=== PATIENT | female | born 1950 | race African-American/Black ===

== ENCOUNTER 2017-06-16 20:30 | Outpatient (CLI) | payer OTHER, MEDICARE | END 2017-06-16 20:31 | disposition home or self-care (01) | LOC: SLEEPLAB 20:30 | PROVIDERS: ATTEND Internal Medicine Critical Care Medicine | DX: G47.33 Obstructive sleep apnea (adult) (pediatric) (principal); R06.81 Apnea, not elsewhere classified; R53.83 Other fatigue; R40.0 Somnolence; E66.9 Obesity, unspecified; R06.83 Snoring; I10 Essential (primary) hypertension ==

== ENCOUNTER 2017-09-13 10:07 | Outpatient (CLI) | payer OTHER, MEDICARE ==
--- NOTE | 2017-09-13 10:44 | RAD ---
LEFT ANKLE RADIOGRAPHS THREE VIEWS: Date: 09-13-17 Provided Clinical History: Atopic dermatitis. FINDINGS: There is no evidence for fracture or other acute osseous abnormality. Conspicuous degenerative change s are seen at the talonavicular joint. Alignment appears anatomic. Joint spaces appear otherwise pres erved. Accessory ossification is noted adjacent to the tip of malleolus. IMPRESSION: Advanced talonavicular degenerative arthrosis. POS: [facility]
--- NOTE | 2017-09-13 10:45 | RAD ---
LEFT HAND RADIOGRAPHS TWO VIEWS: Date: 09-13-17 Provided Clinical History: Atopic dermatitis. FINDINGS: There is no evidence for fracture or other acute osseous abnormality. Alignment appears anatomic. Merna nt spaces appear preserved with the exception of the second MCP joint space narrowing. Degenerative c hanges are seen at the first CMC joint. There is no erosive change evident. Bone mineralization appea rs normal. IMPRESSION: Second MCP joint space narrowing which can be seen in the setting of CPPD deposition disease. POS: [facility]
--- NOTE | 2017-09-13 10:47 | RAD ---
LEFT HAND RADIOGRAPHS TWO VIEWS: Date: 09-13-17 Provided Clinical History: Atopic dermatitis. FINDINGS: There is no evidence for fracture or other acute osseous abnormality. There is second and third MTP j oint space narrowing without significant productive change. No erosive changes are evident. Alignment appears anatomic. Joint spaces appear otherwise preserved. IMPRESSION: Second and third MTP joint space loss without bony productive change or erosive change. 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 POS: [facility]
--- NOTE | 2017-09-13 11:24 | RAD ---
RIGHT ANKLE THREE VIEWS: HISTORY: Atopic dermatitis. Scleritis. COMPARISON: None. FINDINGS: No acute fracture or malalignment. There is severe degenerative disease of the talonavicular joint w ith large erosions. There is possible subtalar coalition. Moderate degenerative changes of the medial and lateral shoulders of the ankle mortis. 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 POS: [facility]
--- NOTE | 2017-09-13 11:29 | RAD ---
RIGHT FOOT THREE VIEWS: HISTORY: Atopic dermatitis. COMPARISON: None. FINDINGS: There is severe degenerative disease of the talonavicular joint with loss of volume of the lateral na vicula with large subchondral cyst formation. Possible subtalar coalition. Lisfranc interval appears to be maintained. No acute fracture or malalignment is appreciated. IMPRESSION: 1. Collapse of the lateral margin of the navicula with severe degenerative disease of the talonavicu lar joint, indicating osteonecrosis with secondary degenerative changes. 2. 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 POS: [facility]
--- NOTE | 2017-09-13 11:47 | RAD ---
LEFT FOOT THREE VIEWS: History: Pain. Comparison: None. FINDINGS: There is loss of volume of the lateral navicular with subchondral cyst formation of the talonavicular joint with complete cartilage loss. 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 No acute fracture is appreci ated. IMPRESSION: 1. 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 2. 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 POS: [facility]
[2017-09-13 12:01] LABS: #Basophils 0.1 thou/uL (0.0-0.2); #Eosinphils 0.4 thou/uL (0.0-0.7); #Lymphocytes 0.7 thou/uL (1.20-3.40); #Monocytes 0.7 thou/uL (0.11-0.59); #Neutrophils 5.5 thou/uL (1.40-6.50); %Basophils 0.7 % (0.0-1.0); %Eosinophils 5.5 % (0.0-10.0); %Lymphocytes 9.7 % (21.0-51.0); Hematocrit 46.5 % (36.0-47.0); Mean Platelet Volume 7.4 fL (7.4-10.4); Red Blood Cell (RBC) Count 4.83 mill/uL (4.20-5.40); White Blood Cell (WBC) Count 7.4 thou/uL (4.8-10.8)
[2017-09-13 12:20] LABS: ALT (SGPT) 13 U/L (8-55); AST (SGOT) 16 U/L (5-34); Alkaline Phosphatase 66 U/L (40-150); Anion Gap 16 mmol/L (10-20); BUN (Urea Nitrogen) 15 mg/dL (9.8-20.1); Bilirubin, Total 0.4 mg/dL (0.2-1.2); Calc. Creatinine Clearance 0 mL/min (70-130); Calcium 10.2 mg/dL (7.8-10.44); Carbon Dioxide 27 mmol/L (23-31); Chloride 98 mmol/L (98-107); Estimated GFR-MDRD 58; Globulin 3.3 g/dL (2.4-3.5); Protein, Total 7.4 g/dL (6.0-8.3)
[2017-09-15 15:15] LABS: ANCA Pattern <1:20 titer (Neg:<1:20); ANCA Total <1:20 titer (Neg:<1:20); Myeloperoxidase AutoAbs <9.0 U/mL (0.0-9.0); Proteinase-3 AutoAbs Less than 3.5 U/mL (0.0-3.5)
== END 2017-09-13 10:08 | disposition home or self-care (01) ==
LOC: RAD 10:07
PROVIDERS: ATTEND Allergy & Immunology Allergy
DX: L40.9 Psoriasis, unspecified (principal); L20.9 Atopic dermatitis, unspecified; H15.04 Scleritis with corneal involvement; H15.013 Anterior scleritis, bilateral; M87.875 Other osteonecrosis, left foot; M19.271 Secondary osteoarthritis, right ankle and foot; M19.042 Primary osteoarthritis, left hand
CPT/HCPCS: 36415; 80053; 85025; 85048; 85652; 86021; 86038; 86140; 86359; 86360; 86592

== ENCOUNTER 2017-10-09 15:37 | Outpatient (CLI) | payer OTHER, MEDICARE ==
--- NOTE | 2017-10-09 17:02 | RAD ---
PA AND LATERAL CHEST RADIOGRAPH: Date: 10-09-17 History: Dyspnea. Comparison: None available. FINDINGS: Cardiac silhouette and pulmonary vasculature are within normal limits. There is mild elevation of the right hemidiaphragm with minimal volume loss in the right lung base. Lungs are otherwise clear. Dege nerative changes are seen in the spine. Vascular calcification is seen in the thoracic aorta. IMPRESSION: No acute cardiopulmonary process. POS: [facility]
== END 2017-10-09 15:38 | disposition home or self-care (01) ==
LOC: RAD 15:37
PROVIDERS: ATTEND Internal Medicine Pulmonary Disease
DX: R06.00 Dyspnea, unspecified (principal)
CPT/HCPCS: 71046

== ENCOUNTER 2018-01-09 14:28 | Outpatient (CLI) | payer OTHER, MEDICARE ==
[2018-01-09] MEDS ORDERED: Gadobenate Dimeglumine 529 MG/1 ML (20ML VIAL) ONE (14:58)
[2018-01-09 16:01] LABS: Estimated GFR-MDRD - POC Greater than 90
--- NOTE | 2018-01-09 16:20 | RAD ---
LUMBAR SPINE TWO VIEWS: 01/09/18 HISTORY: Low back pain. FINDINGS: There are five lumbar type vertebrae. Pedicles are intact. Postoperative changes at the lower three l evels are suspected. Vertebral body heights are maintained. Spondylolisthesis at the 4-5 level has in creased to 1.1 cm, significantly greater than on the 2016 exam. There is multilevel disc space narrow ing and gas disc phenomenon. Prominent osteophytosis. Vertebral body heights are maintained. Leftward convexed curvature on the frontal view. IMPRESSION: Prominent degenerative changes and postoperative changes of the lumbar spine. Grade II spondylolisthesis at the L4-5 level has progressed significantly since the previous exam. POS: [facility]
--- NOTE | 2018-01-09 17:09 | MRI ---
MRI LUMBAR SPINE WITH AND WITHOUT CONTRAST: 01/09/18 HISTORY: Low back pain with radiculopathy. Post laminectomy syndrome. FINDINGS: The conus medullaris is slightly effaced by posterior disc bulge at the T12-L1 level. Vertebral body heights are maintained. There is desiccation of all of the intervertebral discs and prominent multile addy discogenic end plate changes within the bone marrow. T12-L1: Posterior disc bulge. Circumferential degenerative changes with moderate stenosis of the cent ral canal. Mild stenosis left neural foramen. L1-2: Disc space narrowing. Posterior disc bulge with circumferential degenerative changes result in moderate stenosis of the central canal. There is mild right and moderate left foraminal stenosis. L2-3: Posterior operative decompression. Posterior disc bulge and circumferential degenerative change s with mild stenosis of the central canal. Disc space narrowing and minimal degenerative retrolisthes is. Degenerative changes result in moderate right and severe left foraminal stenoses. L3-4: Posterior operative decompression. Disc space narrowing with minimal degenerative retrolisthesi s. Posterior disc bulge and circumferential degenerative change result in moderate stenosis of the ce ntral canal and severe stenosis of each neural foramen. L4-5: Posterior operative decompression. Disc space narrowing with grade II degenerative spondylolist hesis. Disc bulge and circumferential degenerative changes with severe stenosis of the central canal. There is moderate right and severe left foraminal stenosis. L5-S1: Mild disc bulge. Thecal sac is patent. Degenerative changes with moderate bilateral foraminal stenoses. IMPRESSION: Severe multilevel degenerative changes throughout the lumbar spine as detailed above, most greatly af fecting bilateral neural foramina. POS: [facility]
== END 2018-01-09 14:29 | disposition home or self-care (01) ==
LOC: TBSIIMAG 14:28
PROVIDERS: ATTEND Nurse Practitioner Family
DX: M96.1 Postlaminectomy syndrome, not elsewhere classified (principal); M47.896 Other spondylosis, lumbar region; M43.16 Spondylolisthesis, lumbar region; Z98.1 Arthrodesis status; M48.8X6 Other specified spondylopathies, lumbar region
CPT/HCPCS: 72100; 72158; 82565; A9579

== ENCOUNTER 2018-01-12 11:02 | Emergency (ER) | payer OTHER, MEDICARE ==
--- NOTE | 2018-01-12 11:55 | RAD ---
TWO VIEWS CHEST: HISTORY: Dyspnea. Difficulty breathing. COMPARISON: 10/09/17. FINDINGS: Slight elongation of the aorta. Normal cardiac silhouette. The pulmonary vessels and hilum are norm al. Costophrenic angles are clear. Interstitial opacities may represent edema or infiltrate. No co nsolidation or mass. No pneumothorax or osseous abnormalities. IMPRESSION: Interstitial prominence due to edema or infiltrate. Continued surveillance. POS: [facility]
[2018-01-12] MEDS ORDERED: cefTRIAXone\\ROCEPHIN 2 GM VIAL ONE (13:02)
[2018-01-12 13:21] LABS: ALT (SGPT) 7 U/L (8-55); AST (SGOT) 14 U/L (5-34); Albumin 3.9 g/dL (3.4-4.8); Alkaline Phosphatase 81 U/L (40-150); Anion Gap 16 mmol/L (10-20); BUN (Urea Nitrogen) 7 mg/dL (9.8-20.1); Bilirubin, Total 0.7 mg/dL (0.2-1.2); CK (CPK) 72 U/L (29-168); Calc. Creatinine Clearance 0 mL/min (70-130); Carbon Dioxide 22 mmol/L (23-31); Chloride 102 mmol/L (98-107); Estimated GFR-MDRD Greater than 90; Globulin 2.9 g/dL (2.4-3.5); Glucose 84 mg/dL (80-115); Potassium 3.6 mmol/L (3.5-5.1); Protein, Total 6.8 g/dL (6.0-8.3); Sodium 136 mmol/L (136-145)
[2018-01-12 13:26] LABS: CKMB 0.5 ng/mL (0-6.6)
[2018-01-12 13:29] LABS: Band 5 % (5-11); Eosinophils 3 % (0-10); Hemoglobin 12.7 g/dL (12.0-16.0); Lymphocytes 15 % (21-51); MDiff Complete? YES; Mean Corpuscular HGB CONC 32.3 g/dL (32.0-36.0); Mean Corpuscular Hemoglobin 31.3 pg (27.0-31.0); Mean Platelet Volume 7.5 fL (7.4-10.4); Metamyelocyte 1 % (0-0); Monocytes 15 % (0-10); Neutrophil 60 % (42-75); PLT Morphology Comment Appears Adequate; Platelet Count 235 thou/uL (130-400); RBC Distribution Width 12.1 % (11.5-14.5); RBC Morphology Normal; Reactive Lymphocytes 1 % (0-10); Red Blood Cell (RBC) Count 4.06 mill/uL (4.20-5.40); White Blood Cell (WBC) Count 5.4 thou/uL (4.8-10.8)
[2018-01-12 13:47] LABS: Troponin I Less than 0.010 ng/mL (< 0.028)
== END 2018-01-12 14:47 | disposition home or self-care (01) ==
LOC: ERS 11:02
DX: J18.9 Pneumonia, unspecified organism (principal); L40.9 Psoriasis, unspecified; I10 Essential (primary) hypertension; M19.90 Unspecified osteoarthritis, unspecified site; Z79.52 Long term (current) use of systemic steroids; Z79.899 Other long term (current) drug therapy
CPT/HCPCS: 36415; 71046; 80053; 82550; 82553; 83880; 84484; 85025; 87040; 93005; 96365; J0696

== ENCOUNTER 2018-01-17 11:47 | Outpatient (CLI) | payer OTHER, MEDICARE ==
--- NOTE | 2018-01-17 13:45 | RAD ---
PA AND LATERAL VIEWS CHEST: HISTORY: Pneumonia. FINDINGS: Comparison is made with the exam of 01/12/18. There is continued evaluation of the right hemidiaphragm. The heart size is borderline. No lobar co nsolidation, pneumothorax, sara pulmonary edema, or pleural effusions are seen. There are degenerat artemio changes in the spine. IMPRESSION: No acute process. POS: [facility]
== END 2018-01-17 11:48 | disposition home or self-care (01) ==
LOC: SCSRAD 11:47
PROVIDERS: ATTEND Family Medicine
DX: J18.9 Pneumonia, unspecified organism (principal); H10.503 Unspecified blepharoconjunctivitis, bilateral
CPT/HCPCS: 71046

== ENCOUNTER 2018-04-11 14:34 | Outpatient (CLI) | payer OTHER, MEDICARE | END 2018-04-11 14:35 | disposition home or self-care (01) | LOC: BICMAMMO 14:34 | PROVIDERS: ATTEND Allergy & Immunology | DX: Z13.820 Encounter for screening for osteoporosis (principal); M85.859 Other specified disorders of bone density and structure, unspecified thigh; Z79.899 Other long term (current) drug therapy | CPT/HCPCS: 77080 ==

== ENCOUNTER 2018-07-13 17:16 | Emergency (ER) | payer MEDICARE ==
[2018-07-13] MEDS ORDERED: predniSONE 20 MG TAB ONE (18:26)
[2018-07-13] MEDS ORDERED: Famotidine 20 MG TAB ONE (18:26)
[2018-07-13] MEDS ORDERED: diphenhydrAMINE 12.5 MG/5 ML UDCUP ONE (18:26)
== END 2018-07-13 18:35 | disposition home or self-care (01) ==
LOC: ERS 17:16
DX: L50.0 Allergic urticaria (principal); T36.4X5A Adverse effect of tetracyclines, initial encounter; I10 Essential (primary) hypertension
CPT/HCPCS: 99282; J7506

== ENCOUNTER 2018-08-27 09:55 | Outpatient (CLI) | payer MEDICARE ==
[2018-08-27] MEDS ORDERED: Magnevist 469MG/ML 20 ML VIAL ONE (10:19)
--- NOTE | 2018-08-27 17:17 | MRI ---
MRI LUMBAR SPINE WITH AND WITHOUT CONTRAST: Date: 08/27/18 HISTORY: Pain. M43.16 spondylolisthesis lumbar region. COMPARISON: MRI from 01/09/18. FINDINGS: The aortic contour, where visualized, is nonaneurysmal, although is not completely visualized on the axial images. No retroperitoneal adenopathy. Mild paraspinal muscular atrophy, symmetric. There is no marrow infiltrative process. Post laminectomy surgical changes at L3, L4, and L5. The conus medullaris terminates near the mid L1 vertebral body. No abnormal enhancing mass is appreciated. Levels are as follows: T12-L1: There is a circumferential disc osteophyte complex. Mild ligamentum flavum hypertrophy. The spinal canal measures approximately 8.0 mm. Mild bilateral neural foraminal narrowing. L1-2: There is a circumferential disc bulge. Increased posterior epidural fat. Spinal canal measures approximately 7.0 mm. There is moderate bilateral neural foraminal narrowing, worse on the left, wit h mild right and moderate left side neural foraminal narrowing. L2-3: There is a circumferential disc bulge. Prior laminectomy. Spinal canal not significantly narro wed. Moderate facet arthropathy. There is moderate left and mild right-sided neural foraminal narrowi ng with abutment of the left exiting and traversing nerve root. There is 3.0 mm degenerative retrolis thesis. L3-4: Severe degenerative disc space height loss. Circumferential disc osteophyte complex. There is moderate to severe left and moderate right side neural foraminal narrowing with abutment of the left exiting and traversing nerve roots and abutment of the right traversing nerve root. Hypertrophic face t changes. No significant spinal canal narrowing. L4-5: There is anterolisthesis of L4 over L5 approximately 9.0 mm. Hypertrophic facet changes. Moder ate bilateral neural foraminal narrowing. Spinal canal not significantly narrowed. Abutment of the ex iting left-sided nerve root. L5-S1: Moderate to severe degenerative disc space height loss. Circumferential disc osteophyte compl ex. Moderate to severe bilateral neural foraminal narrowing without significant abutment of the exiti ng or traversing nerve roots. IMPRESSION: Multilevel spondylosis as described above. POS: [facility]
== END 2018-08-27 09:56 | disposition home or self-care (01) ==
LOC: BICMRI 09:55
PROVIDERS: ATTEND Specialist
DX: M43.16 Spondylolisthesis, lumbar region (principal); M47.816 Spondylosis without myelopathy or radiculopathy, lumbar region; M47.817 Spondylosis without myelopathy or radiculopathy, lumbosacral region
CPT/HCPCS: 72158; 82565; A9579

== ENCOUNTER 2018-09-03 13:31 | Outpatient (CLI) | payer MEDICARE ==
--- NOTE | 2018-09-03 16:08 | RAD ---
LUMBAR SPINE FOUR VIEWS: 09/03/2018 HISTORY: Lumbar spondylolisthesis. COMPARISON: 01/09/2018 FINDINGS: Five lumbar type vertebral bodies are present. The patient appears status post multilevel bilateral laminectomy. This includes the L2 level through the L5 level. Neutral lateral imaging demonstrates anterolisthesis of L4 on L5,measuring 1.6 cm. There is retrolis thesis at L2-L3 measuring 6 mm and at L3-L4 measuring 5 mm. There is facet hypertrophy at L3-L4, L4- L5, and L5-S1, and there is multilevel disk space height with degenerative endplate change noted thro ughout the lumbar spine. With flexion, the anterolisthesis of L4 on L5 measures 1.6 cm. The retroli sthesis at L2-L3 measures 4 mm, and the retrolisthesis at L3-L4 measures 5 mm. With extension, anterolisthesis of L4 on L5 measures 1.6 cm. Retrolisthesis at L2-L3 measures 4 mm a nd at L3-L4 measures 5 mm. No acute osseous abnormality. IMPRESSION: Postoperative and degenerative change noted within the lumbar spine, as described above. POS: [facility]
== END 2018-09-03 13:32 | disposition home or self-care (01) ==
LOC: BICRAD 13:31
PROVIDERS: ATTEND Specialist
DX: M43.16 Spondylolisthesis, lumbar region (principal); M47.816 Spondylosis without myelopathy or radiculopathy, lumbar region; M47.817 Spondylosis without myelopathy or radiculopathy, lumbosacral region; Z98.890 Other specified postprocedural states
CPT/HCPCS: 72110

== ENCOUNTER 2018-11-15 00:30 | Outpatient (CLI) | payer MEDICARE ==
[2018-11-15 14:05] LABS: #Eosinphils 0.8 thou/uL (0.0-0.7); #Monocytes 0.8 thou/uL (0.11-0.59); #Neutrophils 3.9 thou/uL (1.40-6.50); %Basophils 0.2 % (0.0-1.0); %Eosinophils 12.7 % (0.0-10.0); %Lymphocytes 14.9 % (21.0-51.0); %Monocytes 12.5 % (0.0-10.0); %Neutrophils 59.8 % (42.0-75.0); Hemoglobin 13.1 g/dL (12.0-16.0); Mean Corpuscular HGB CONC 32.1 g/dL (32.0-36.0); Mean Corpuscular Hemoglobin 31.6 pg (27.0-31.0); Mean Corpuscular Volume 98.3 fL (78.0-98.0); Mean Platelet Volume 9.2 fL (7.4-10.4); Platelet Count 270 thou/uL (130-400); RBC Distribution Width 11.9 % (11.5-14.5); Red Blood Cell (RBC) Count 4.14 mill/uL (4.20-5.40); White Blood Cell (WBC) Count 6.5 thou/uL (4.8-10.8)
[2018-11-15 14:16] LABS: Prothrombin Time 13.5 SEC (12.0-14.7)
[2018-11-15 14:20] LABS: Anion Gap 16 mmol/L (10-20); BUN (Urea Nitrogen) 30 mg/dL (9.8-20.1); Calc. Creatinine Clearance 0 mL/min (70-130); Calcium 9.8 mg/dL (7.8-10.44); Carbon Dioxide 22 mmol/L (23-31); Chloride 105 mmol/L (98-107); Estimated GFR-MDRD 51; Glucose 101 mg/dL (80-115); Potassium 3.6 mmol/L (3.5-5.1); Sodium 139 mmol/L (136-145)
== END 2018-11-15 00:31 | disposition home or self-care (01) ==
LOC: LABBT 00:30
PROVIDERS: ATTEND Orthopaedic Surgery
DX: Z01.818 Encounter for other preprocedural examination (principal); M17.11 Unilateral primary osteoarthritis, right knee
CPT/HCPCS: 80048; 85025; 85610; 86850; 86900; 86901; 87081; 93005; 93010

== ENCOUNTER 2018-11-15 13:30 | Inpatient (IN) | payer MEDICARE ==
--- NOTE | 2018-11-13 12:50 | HP ---
HISTORY OF PRESENT ILLNESS: The patient is a 68-year-old female with a long history of progressive degenerative arthritis of both knees, right greater than left. She has had no injury. She has had progressive symptoms despite restriction of activities, anti-inflammatory medications, and cortisone injections. The pain is interfering with day-to-day activities including walking, getting dressed, and sleeping. She is to use a cane for ambulation. PAST HISTORY: The patient has a history of hypertension and psoriasis. CURRENT MEDICATIONS: Include multivitamins, Aquaphor ointment, Altabax ointment, Dupixent injections twice monthly, Tylenol No.3, Cardura, cyclosporine, pantoprazole, chlorthalidone, and carvedilol. ALLERGIES: SHE IS ALLERGIC TO BIAXIN, METHOTREXATE, AND SULFA. FAMILY HISTORY: Otherwise unremarkable. SOCIAL HISTORY: Otherwise unremarkable. REVIEW OF SYSTEMS: Otherwise unremarkable. PHYSICAL EXAMINATION: GENERAL: Reveals a healthy female. HEENT: Unremarkable. NECK: Supple. CHEST: Clear. HEART: Regular rate and rhythm. ABDOMEN: Soft and nontender. PELVIC: Deferred. RECTAL: Deferred. BREAST: Deferred. EXTREMITIES: Pertinent findings related to the right knee. There is a trace effusion. There is mild varus deformity. There is tenderness over the medial and lateral joint lines. Range of motion is 3 to 120 degrees. There is crepitus with range of motion. There is no instability. Distal pulses 1+. NEUROVASCULAR: Intact. There is a right antalgic gait. DIAGNOSTIC STUDIES: X-rays of both knees reveal [id number] collapse medially, right greater than left. ASSESSMENT: 1. Degenerative arthritis of both knees, right symptomatic more than left. 2. History of hypertension. 3. History of psoriasis. PLAN: Right total knee replacement. The nature of the surgery, length, recovery, potential complications, infection, loss of motion, incomplete relief, delayed wound healing, neurovascular injury, thromboembolic phenomenon, possible transfusion, and need for revision have been discussed in detail. Job ID: [id number]
[2018-11-15 13:04] VITALS: BMI 35.5
[2018-11-19] MEDS ORDERED: Vancomycin HCl 1.5 GM in Sodium Chloride 0.9% 250 ML 300 ML IVPB SCH ×3 (06:00→18:00)
[2018-11-19] MEDS ORDERED: Fentanyl 100 MCG/2 ML VIAL ONE ×4 (06:34→09:56)
[2018-11-19] MEDS ORDERED: Midazolam HCl 2 mg/2 ml Vial ONE (06:34)
[2018-11-19] MEDS ORDERED: Bupivacaine/Epinephrine 0.25% 30 ML VIAL ONE ×2 (06:41→06:42)
[2018-11-19] MEDS ORDERED: Lidocaine 1% w/Epinephrine 1:100K 20 ML VIAL ONE ×3 (06:41→06:46)
[2018-11-19] MEDS ORDERED: Tranexamic Acid 1,000 MG/10 ML VIAL ONE ×2 (06:52→09:28)
[2018-11-19] MEDS ORDERED: Sodium Chloride 0.9% 100 ML ONE (06:52)
[2018-11-19] MEDS ORDERED: Promethazine HCl 25 MG/ML VIAL IM PRN ×2 (07:57→08:42)
[2018-11-19] MEDS ORDERED: HYDROcodone/Acetaminophen 10/325 mg Tablet PO PRN ×4 (07:57→11:36)
[2018-11-19] MEDS ORDERED: Fentanyl 100 MCG/2 ML VIAL SLOW IVP PRN ×3 (07:57→11:36)
[2018-11-19] MEDS ORDERED: Zolpidem Tartrate 5 MG TAB PO PRN ×2 (07:57→11:36)
[2018-11-19] MEDS ORDERED: traMADol HCl 50 MG TAB PO PRN ×2 (07:57→11:36)
[2018-11-19] MEDS ORDERED: Promethazine HCl 25 MG/ML VIAL SLOW IVP PRN ×2 (08:42→11:36)
[2018-11-19] MEDS ORDERED: Ondansetron HCl/PF 4 MG/2 ML Vial IVP PRN (08:42)
[2018-11-19] MEDS ORDERED: Tranexamic Acid 1,000 MG in Sodium Chloride 0.9% 100 ML IVPB SCH ×2 (09:30→11:36)
[2018-11-19] MEDS ORDERED: Lidocaine 1% (PF) 30 ML VIAL ONE (10:35)
--- NOTE | 2018-11-19 11:10 | RAD ---
TWO VIEWS RIGHT KNEE: DATE: 11/19/2018. PROVIDED CLINICAL HISTORY: Postop. FINDINGS: Postoperative changes of right total knee arthroplasty are demonstrated. There is no evidence for an acute osseous abnormality. Postoperative soft tissue gas is seen. IMPRESSION: As above. POS: [facility]
[2018-11-19] MEDS ORDERED: Ondansetron PF 4 MG/2 ML Vial IVP PRN (11:36)
[2018-11-19] MEDS ORDERED: diphenhydrAMINE 25 MG CAP PO PRN (11:36)
[2018-11-19] MEDS ORDERED: Acetaminophen 325 MG TAB PO PRN (11:36)
[2018-11-19] MEDS ORDERED: Leflunomide 10 mg Tablet PO PRN (11:36)
--- NOTE | 2018-11-19 13:56 | OP ---
DATE OF PROCEDURE: 11/19/2018 ELIGIBILITY SERVICES REPRESENTATIVE: Soco Anne PA-C ANESTHESIA: General plus adductor canal and sciatic nerve blocks. PREOPERATIVE DIAGNOSIS: Degenerative arthritis, right knee. POSTOPERATIVE DIAGNOSIS: Degenerative arthritis, right knee. PROCEDURE PERFORMED: Right total knee replacement with computer-assisted navigation with cemented [place] triathlon components (#3 femoral component, #3 primary base plate with 9 mm CS plastic insert, and S27 all plastic patellar component). DESCRIPTION OF PROCEDURE: After satisfactory anesthesia was induced in supine position, sequential compression device was placed on the nonoperative leg throughout the procedure. The right leg was then prepped and draped in routine sterile fashion. The right leg was elevated and exsanguinated with an Esmarch bandage and the tourniquet was inflated to 300 mmHg. A gently curved medial parapatellar incision was made, carried down through the subcutaneous tissues and bleeding points controlled with Bovie cautery. Medial parapatellar arthrotomy was performed of the patella, this was carried laterally and portions of the fat pad were excised for exposure. There was marked tricompartmental degenerative arthritis of the knee with large areas of exposed bone. Meniscal remnants and osteophytes were removed. Using the [employer] pinless navigation system and appropriate guides, the distal femoral and proximal tibial articular surfaces were excised with an oscillating saw to accept the trial components. It was felt that #3 femoral component, #3 primary tibial base plate with 9-mm CS plastic insert gave appropriate size, fit, stability. The patellar articular surface was excised to accept all plastic S27 patellar component. There was good patellar tracking. The trial components were removed. The knee was copiously irrigated with pulsatile lavage. The bony surfaces thoroughly cleaned and dried. The permanent components were then cemented in a single stage using one pack of cement premixed with 1 g of tobramycin powder. Excess cement was removed. There was again good fit and stability of the components. The knee was then copiously irrigated with pulsatile lavage. The medial retinaculum and quadriceps mechanism were closed with interrupted #2 Vicryl running #2 Quill. Subcutaneous tissues were closed with running 0 Quill suture and the skin closed with running subcuticular 3-0 Monoderm and SurgiSeal skin adhesive. A sterile bulky compressive dressing was applied. The tourniquet deflated for 72 minutes. The foot promptly pinked up. Sequential compression device was applied to the operated leg and she was awakened, taken to the recovery room in stable condition. There were no apparent intraoperative complications. The estimated blood loss was less than 100 mL. Job ID: [id number]
[2018-11-19] MEDS: Sodium Chloride 0.9% 1,000 ML IV SCH ×2 (13:57→23:53)
[2018-11-19] MEDS ORDERED: Ropivacaine 0.5% HCl/PF (150 MG/30 ML VIAL) ONE (14:42)
[2018-11-19] MEDS ORDERED: Ropivacaine 0.2% HCl/PF (40 MG/20 ML VIAL) ONE (14:42)
[2018-11-19] MEDS ORDERED: Bupivacaine HCl 0.5%/Epinephrine 1:200,000/PF 30 ml Vial ONE (14:42)
[2018-11-19] MEDS ORDERED: Lidocaine 1% PF 5 ML VIAL ONE (14:52)
[2018-11-19] MEDS ORDERED: Ondansetron PF 4 MG/2 ML Vial ONE (14:52)
[2018-11-19] MEDS ORDERED: PROPOFOL 200 MG/20 ML VIAL ONE (14:52)
[2018-11-19] MEDS: CEFAZOLIN 2 GM in Premix Bag 1 BAG IVPB SCH (16:24)
[2018-11-19] MEDS: diphenhydrAMINE 25 MG CAP PO SCH (20:40)
[2018-11-19] MEDS: Carvedilol 6.25 MG TAB PO SCH (20:40)
[2018-11-19] MEDS: Aspirin 81 mg Enteric Coated Tablet PO SCH (20:41)
[2018-11-19] MEDS: Loteprednol Etabonate 0.5% Ophth Suspension 5 ml Bottle EA EYE SCH (20:41)
[2018-11-19] MEDS: Doxazosin Mesylate 1 MG TAB PO SCH (20:42)
[2018-11-19] MEDS: cycloSPORINE, Modified 100 MG CAP PO SCH (20:42)
[2018-11-19] MEDS: Ondansetron PF 4 MG/2 ML Vial IVP PRN (20:51)
[2018-11-19] MEDS ORDERED: Hydrocerin (Eucerin) Cream 120 gm Jar TOP PRN (22:54)
--- NOTE | 2018-11-19 22:54 | PDOC.PN ---
- Subjective Encounter Start Date: 11/19/18 Encounter Start Time: 14:00 Patient seen and examined for med mngt. No CP/SOB. No new complaints. No overnight events - Objective MAR Reviewed: Yes Vital Signs & Weight: Vital Signs (12 hours) Temp Pulse Resp BP BP Pulse Ox 11/19/18 20:40 157/72 H 11/19/18 20:00 98.3 F 74 18 157/72 H 94 L 11/19/18 11:36 97.5 F L 59 L 16 145/86 H 96 Weight Weight 220 lb I&O: 11/18/18 11/19/18 11/20/18 06:59 06:59 06:59 Output Total 1200 Balance -1200 EKG Reviewed by me: Yes (SB) Phys Exam - Physical Examination Constitutional: NAD Respiratory: no wheezing, no rhonchi Cardiovascular: RRR, no rub Gastrointestinal: soft, non-tender, positive bowel sounds Musculoskeletal: no edema Neurological: moves all 4 limbs Dx/Plan - Plan DVT proph w/SCDs 1. HTN 2. RA 3. Psoariasis 4. Obesity BMI 35.5 5. GERD PLAN: Cont current antihypertensives - Hold for SBP <120 Cont PPI Pain control per primary Will follow. Full code. DPOA - spouse Review of Systems - Review of Systems Respiratory: negative: Cough, Dry, Shortness of Breath, Hemoptysis, SOB with Excertion, Pleuritic Pain, Sputum, Wheezing Cardiovascular: negative: chest pain, palpitations, orthopnea, paroxysmal nocturnal dyspnea, edema, light headedness, other - Medications/Allergies Allergies/Adverse Reactions: Allergies Allergy/AdvReac Type Severity Reaction Status Date / Time methotrexate Allergy Severe Verified 11/15/18 12:55 clarithromycin [From Biaxin] Allergy Swollen Verified 11/15/18 12:55 Lips Sulfa (Sulfonamide Allergy Verified 11/15/18 12:55 Antibiotics) Medications: Current Medications Acetaminophen (Tylenol) 650 mg PO Q4H PRN PRN Reason: Headache/Fever or Pain Last Admin: 11/19/18 13:24 Dose: 650 mg Hydrocodone Bitart/Acetaminophen ([place] 10/325) 1 tab PO Q4H PRN PRN Reason: Pain (1-3) Last Admin: 11/19/18 17:16 Dose: 1 tab Hydrocodone Bitart/Acetaminophen ([place] 10/325) 2 tab PO Q4H PRN PRN Reason: PAIN (4-6) Amlodipine Besylate (Norvasc) 5 mg PO DAILY PENDING SALE TO [facility] Aspirin (Ecotrin) 81 mg PO BID PENDING SALE TO [facility] Last Admin: 11/19/18 20:41 Dose: 81 mg Carvedilol (Coreg) 12.5 mg PO BID PENDING SALE TO [facility] Last Admin: 11/19/18 20:40 Dose: 12.5 mg Chlorthalidone (Hygroton) 25 mg PO DAILY PENDING SALE TO [facility] Cholecalciferol (Vitamin D3) 2,000 units PO DAILY PENDING SALE TO [facility] Cyclosporine (Neoral) 100 mg PO BID PENDING SALE TO [facility] Last Admin: 11/19/18 20:42 Dose: Not Given Diphenhydramine HCl (Benadryl) 25 mg PO Q6H PRN PRN Reason: Itching Diphenhydramine HCl (Benadryl) 50 mg PO QPM PENDING SALE TO [facility] Last Admin: 11/19/18 20:40 Dose: 50 mg Doxazosin Mesylate (Cardura) 1 mg PO QPM PENDING SALE TO [facility] Last Admin: 11/19/18 20:42 Dose: Not Given Fentanyl (Sublimaze) 50 mcg SLOW IVP Q1H PRN PRN Reason: breakthrough pain Ferrous Gluconate (Fergon) 324 mg PO BID PENDING SALE TO [facility] Folic Acid (Folvite) 1 mg PO DAILY PENDING SALE TO [facility] Ropivacaine 250 ml/ Device 250 mls @ 10 mls/hr NERVE BLCK INF PENDING SALE TO [facility] Cefazolin Sodium/Dextrose 2 gm (/ Device) 50 mls @ 100 mls/hr IVPB 0000,1600 PENDING SALE TO [facility] Stop: 11/20/18 00:29 Last Admin: 11/19/18 16:24 Dose: 50 mls Sodium Chloride (Normal Saline 0.9%) 1,000 mls @ 100 mls/hr IV .Q10H PENDING SALE TO [facility] Last Admin: 11/19/18 13:57 Dose: Not Given Iron/Minerals/Multivitamins (Theragran M) 1 tab PO DAILY PENDING SALE TO [facility] Leflunomide (Arava) 10 mg PO DAILYPRN PRN PRN Reason: Itching Loteprednol Etabonate (Lotemax 0.5% Ophth Suspension) 0 drop EA EYE BID PENDING SALE TO [facility] Last Admin: 11/19/18 20:41 Dose: 1 drop (Eucrisa 1 Applic) 1 applic TOP BID PENDING SALE TO [facility] Ondansetron HCl (Zofran) 4 mg IVP Q6H PRN PRN Reason: Nausea/Vomiting Last Admin: 11/19/18 20:51 Dose: 4 mg Pantoprazole Sodium (Protonix) 40 mg PO DAILY [facility] Promethazine HCl (Phenergan) 12.5 mg IM Q4H PRN PRN Reason: Nausea Senna/Docusate Sodium (Senokot S) 2 tab PO BID [facility] Sodium Chloride (Flush - Normal Saline) 10 ml IVF PRN PRN PRN Reason: Saline Flush Tramadol HCl (Ultram) 50 mg PO Q6H PRN PRN Reason: Mild Pain (1-3) Tramadol HCl (Ultram) 100 mg PO Q6H PRN PRN Reason: Moderate Pain 4-6 Zolpidem Tartrate (Ambien) 5 mg PO HSPRN PRN PRN Reason: Insomnia
[2018-11-20] MEDS: CEFAZOLIN 2 GM in Premix Bag 1 BAG IVPB SCH (00:41)
[2018-11-20 06:16] LABS: Hemoglobin 10.5 g/dL (12.0-16.0); Mean Corpuscular HGB CONC 32.9 g/dL (32.0-36.0); Mean Corpuscular Hemoglobin 31.5 pg (27.0-31.0); Mean Platelet Volume 8.4 fL (7.4-10.4); Platelet Count 216 thou/uL (130-400); RBC Distribution Width 11.6 % (11.5-14.5); Red Blood Cell (RBC) Count 3.34 mill/uL (4.20-5.40); White Blood Cell (WBC) Count 12.3 thou/uL (4.8-10.8)
[2018-11-20] MEDS: Ondansetron PF 4 MG/2 ML Vial IVP PRN (08:25)
[2018-11-20] MEDS ORDERED: methylPREDNISolone Acetate 40 mg/ml Vial IM SCH (09:00)
[2018-11-20] MEDS ORDERED: Lidocaine 1% (PF) 30 ML VIAL SC SCH (09:00)
[2018-11-20] MEDS: Ropivacaine HCl/PF 250 ML in Premix Bag 1 BAG NERVE BLCK SCH (12:12)
[2018-11-20] MEDS: Polyethylene Glycol 3350 17 GM Packet PO SCH (12:13)
[2018-11-20] MEDS: Loteprednol Etabonate 0.5% Ophth Suspension 5 ml Bottle EA EYE SCH ×2 (12:13→20:29)
[2018-11-20] MEDS: cycloSPORINE, Modified 100 MG CAP PO SCH ×2 (12:18→20:27)
[2018-11-20] MEDS: Carvedilol 6.25 MG TAB PO SCH ×2 (12:18→20:27)
[2018-11-20] MEDS: Senokot S 8.6-50 MG TAB PO SCH ×2 (12:18→20:29)
[2018-11-20] MEDS: Aspirin 81 mg Enteric Coated Tablet PO SCH ×2 (12:18→20:27)
[2018-11-20] MEDS: Folic Acid 1 MG TAB PO SCH (12:19)
[2018-11-20] MEDS: Ferrous Gluconate 324 MG TAB PO SCH ×2 (12:19→20:29)
[2018-11-20] MEDS: Amlodipine 10 MG TAB PO SCH (12:19)
[2018-11-20] MEDS: Multivitamin W/ Minerals 1 TAB PO SCH (12:20)
[2018-11-20] MEDS: Chlorthalidone 25 MG TAB PO SCH (12:20)
--- NOTE | 2018-11-20 12:26 | PRG ---
DATE OF SERVICE: 11/20/2018 SUBJECTIVE: Vitaly is a 68-year-old female, who is postop day one from a right total knee arthroplasty. She complains of discomfort yesterday evening and also complains bitterly of pain in her left knee, which is also arthritic. I have offered her an intra-articular corticosteroid injection later today if she desires. OBJECTIVE: VITAL SIGNS: Temperature is 98.5, pulse is 71, respiratory rate is 22, O2 saturation on room air is between 91 to 94, and blood pressure is 116/55. GENERAL: She is alert and oriented to person, place, time and situation, grossly nonfocal. No apparent distress. She is eating breakfast well. SKIN: Her incision is clean and closed. EXTREMITIES: She is neurovascularly intact in the right lower extremity. LABORATORY DATA: Hemoglobin and hematocrit are 10.5 and 32.1. IMPRESSION: 1. This is a 68-year-old female, postop day #1 right total knee arthroplasty, doing well. 2. Symptomatic degenerative arthritis, left knee. PLAN: 1. I will go ahead and give her intra-articular corticosteroid later today of 80 mg Depo-Medrol and lidocaine. 2. Recheck tomorrow. Job ID: [id number]
[2018-11-20] MEDS: Sodium Chloride 0.9% 1,000 ML IV SCH ×2 (13:43→18:51)
--- NOTE | 2018-11-20 16:11 | PDOC.PN ---
- Subjective Encounter Start Date: 11/20/18 Encounter Start Time: 14:00 Patient seen and examined for med mngt. Pain controlled. No fever/chills. No new complaints. No overnight events - Objective MAR Reviewed: Yes Vital Signs & Weight: Vital Signs (12 hours) Temp Pulse Resp BP BP Pulse Ox 11/20/18 15:15 99.9 F H 67 16 135/75 94 L 11/20/18 12:19 71 11/20/18 12:18 157/72 H 11/20/18 08:00 91 L 11/20/18 07:35 98.5 F 71 22 H 116/55 L 91 L Weight Admit Weight 220 lb Weight 220 lb I&O: 11/19/18 11/20/18 11/21/18 06:59 06:59 06:59 Intake Total 1480 Output Total 1200 500 Balance -1200 980 Result Diagrams: 11/20/18 05:17 Phys Exam - Physical Examination Constitutional: NAD Respiratory: no wheezing, no rhonchi Cardiovascular: RRR, no rub Gastrointestinal: soft, non-tender, positive bowel sounds Musculoskeletal: no edema Dx/Plan - Plan PT/OT, incentive spirometry, DVT proph w/SCDs 1. HTN 2. RA 3. Psoariasis 4. Obesity BMI 35.5 5. GERD PLAN: Cont Amlodipine/Coreg/Chlorthalidone and Doxazosin - Hold for SBP <120 Cont other meds as below Cont Cyclosporine Review of Systems - Review of Systems Respiratory: negative: Cough, Dry, Shortness of Breath, Hemoptysis, SOB with Excertion, Pleuritic Pain, Sputum, Wheezing Cardiovascular: negative: chest pain, palpitations, orthopnea, paroxysmal nocturnal dyspnea, edema, light headedness, other - Medications/Allergies Allergies/Adverse Reactions: Allergies Allergy/AdvReac Type Severity Reaction Status Date / Time methotrexate Allergy Severe Verified 11/15/18 12:55 clarithromycin [From Biaxin] Allergy Swollen Verified 11/15/18 12:55 Lips Sulfa (Sulfonamide Allergy Verified 11/15/18 12:55 Antibiotics) Medications: Current Medications Acetaminophen (Tylenol) 650 mg PO Q4H PRN PRN Reason: Headache/Fever or Pain Last Admin: 11/19/18 13:24 Dose: 650 mg Hydrocodone Bitart/Acetaminophen ([place] 10/325) 1 tab PO Q4H PRN PRN Reason: Pain (1-3) Last Admin: 11/19/18 17:16 Dose: 1 tab Hydrocodone Bitart/Acetaminophen ([place] 10/325) 2 tab PO Q4H PRN PRN Reason: PAIN (4-6) Last Admin: 11/20/18 03:43 Dose: 2 tab Amlodipine Besylate (Norvasc) 5 mg PO DAILY [facility] Last Admin: 11/20/18 12:19 Dose: 5 mg Aspirin (Ecotrin) 81 mg PO BID [facility] Last Admin: 11/20/18 12:18 Dose: 81 mg Carvedilol (Coreg) 12.5 mg PO BID [facility] Last Admin: 11/20/18 12:18 Dose: 12.5 mg Chlorthalidone (Hygroton) 25 mg PO DAILY [facility] Last Admin: 11/20/18 12:20 Dose: 25 mg Cholecalciferol (Vitamin D3) 2,000 units PO DAILY [facility] Last Admin: 11/20/18 12:17 Dose: 2,000 units Cyclosporine (Neoral) 100 mg PO BID [facility] Last Admin: 11/20/18 12:18 Dose: 100 mg Diphenhydramine HCl (Benadryl) 25 mg PO Q6H PRN PRN Reason: Itching Diphenhydramine HCl (Benadryl) 50 mg PO QPM [facility] Last Admin: 11/19/18 20:40 Dose: 50 mg Doxazosin Mesylate (Cardura) 1 mg PO QPM [facility] Last Admin: 11/19/18 20:42 Dose: Not Given Emollient Cream (Hydrocerin Cream) 0 gm TOP BIDPRN PRN PRN Reason: Dry Skin Fentanyl (Sublimaze) 50 mcg SLOW IVP Q1H PRN PRN Reason: breakthrough pain Ferrous Gluconate (Fergon) 324 mg PO BID [facility] Last Admin: 11/20/18 12:19 Dose: 324 mg Folic Acid (Folvite) 1 mg PO DAILY [facility] Last Admin: 11/20/18 12:19 Dose: 1 mg Ropivacaine 250 ml/ Device 250 mls @ 10 mls/hr NERVE BLCK INF [facility] Last Admin: 11/20/18 12:12 Dose: 250 mls Sodium Chloride (Normal Saline 0.9%) 1,000 mls @ 100 mls/hr IV .Q10H [facility] Last Admin: 11/20/18 13:43 Dose: Not Given Iron/Minerals/Multivitamins (Theragran M) 1 tab PO DAILY [facility] Last Admin: 11/20/18 12:20 Dose: 1 tab Leflunomide (Arava) 10 mg PO DAILYPRN PRN PRN Reason: Itching Loteprednol Etabonate (Lotemax 0.5% Ophth Suspension) 0 drop EA EYE BID [facility] Last Admin: 11/20/18 12:13 Dose: 1 drop (Eucrisa 1 Applic) 1 applic TOP BID [facility] Ondansetron HCl (Zofran) 4 mg IVP Q6H PRN PRN Reason: Nausea/Vomiting Last Admin: 11/20/18 08:25 Dose: 4 mg Pantoprazole Sodium (Protonix) 40 mg PO DAILY [facility] Last Admin: 11/20/18 12:18 Dose: 40 mg Polyethylene Glycol (Miralax) 17 gm PO DAILY [facility] Last Admin: 11/20/18 12:13 Dose: 17 gm Promethazine HCl (Phenergan) 12.5 mg IM Q4H PRN PRN Reason: Nausea Last Admin: 11/20/18 09:58 Dose: 12.5 mg Senna/Docusate Sodium (Senokot S) 2 tab PO BID [facility] Last Admin: 11/20/18 12:18 Dose: 2 tab Sodium Chloride (Flush - Normal Saline) 10 ml IVF PRN PRN PRN Reason: Saline Flush Tramadol HCl (Ultram) 50 mg PO Q6H PRN PRN Reason: Mild Pain (1-3) Tramadol HCl (Ultram) 100 mg PO Q6H PRN PRN Reason: Moderate Pain 4-6 Zolpidem Tartrate (Ambien) 5 mg PO HSPRN PRN PRN Reason: Insomnia
[2018-11-20] MEDS: diphenhydrAMINE 25 MG CAP PO SCH (20:28)
[2018-11-20] MEDS: Doxazosin Mesylate 1 MG TAB PO SCH (20:29)
[2018-11-20] MEDS: traMADol HCl 50 MG TAB PO PRN (20:30)
[2018-11-21] MEDS: Sodium Chloride 0.9% 1,000 ML IV SCH ×2 (04:44→19:34)
[2018-11-21] MEDS: traMADol HCl 50 MG TAB PO PRN ×2 (05:59→21:20)
--- NOTE | 2018-11-21 08:07 | PRG ---
DATE OF SERVICE: 11/21/2018 SUBJECTIVE: Vitaly is a 68-year-old female, who is postop day 1 from a right total knee arthroplasty by Dr. Miller. I also injected her left knee yesterday with intra-articular corticosteroid injection for symptomatic relief so that she can engage in therapy and increase her ambulatory distances. She is happy with her left knee pain presently and apparently, the injection has provided her with some benefit. OBJECTIVE: VITAL SIGNS: Temperature 99.2, pulse 76, blood pressure 143/74, respiratory rate is 20, O2 saturation on room air is 92%, and blood pressure is 147/72. GENERAL: She is alert and oriented to person, place, time, and situation and grossly nonfocal, appropriate with examiner. HEART: Regular rate and rhythm. EXTREMITIES: Visual inspection of the left knee demonstrated her to have trace effusion, but it is not as tense as it was yesterday with interval improvement since yesterday's injection. Visual inspection of the right knee demonstrates her incision to be clean and closed and strike through. She is neurovascularly intact in both lower extremities with good dorsiflexion. Night nurse reported dark-colored urine output. Therefore, we will plan for a urinalysis today. IMPRESSION: 1. A 68-year-old female, postop day 2, right total knee arthroplasty with left knee persistent osteoarthritis, status post injection. 2. Possible uncomplicated urinary tract infection. PLAN: 1. We will order keep a clean-catch urinalysis with microscopy and reflex culture sensitivity. 2. Continue physical therapy and efforts independence. 3. Consider discharge tomorrow or Monday at the latest to home. She is already set up for home health. Job ID: [id number]
[2018-11-21] MEDS: Ferrous Gluconate 324 MG TAB PO SCH ×2 (08:41→21:17)
[2018-11-21] MEDS: cycloSPORINE, Modified 100 MG CAP PO SCH ×2 (08:41→21:18)
[2018-11-21] MEDS: Aspirin 81 mg Enteric Coated Tablet PO SCH ×2 (08:41→21:18)
[2018-11-21] MEDS: Senokot S 8.6-50 MG TAB PO SCH ×2 (08:41→21:19)
[2018-11-21] MEDS: Multivitamin W/ Minerals 1 TAB PO SCH (08:42)
[2018-11-21] MEDS: Carvedilol 6.25 MG TAB PO SCH ×2 (08:42→21:18)
[2018-11-21] MEDS: Folic Acid 1 MG TAB PO SCH (08:43)
[2018-11-21] MEDS: Chlorthalidone 25 MG TAB PO SCH (08:43)
[2018-11-21] MEDS: Amlodipine 10 MG TAB PO SCH (08:43)
[2018-11-21] MEDS: Loteprednol Etabonate 0.5% Ophth Suspension 5 ml Bottle EA EYE SCH ×2 (08:44→21:19)
[2018-11-21] MEDS: Polyethylene Glycol 3350 17 GM Packet PO SCH (08:44)
[2018-11-21 10:36] LABS: Bilirubin Negative (Negative); Blood, Urine Trace (Negative); Glucose, Urine (Dipstick) Negative (Negative); Leukocyte Negative (Negative); Nitrite Negative (Negative); Protein, Urine (Dipstick) Negative (Neg-Trace); Urobilinogen 0.2 mg/dL (0.2-1.0); pH, Urine 5.5 (5.0-9.0)
[2018-11-21 10:40] LABS: Clarity CLEAR (Clear)
[2018-11-21 10:44] LABS: Bacteria/HPF 1+ HPF (None Seen); Hyaline Casts/LPF NONE SEEN LPF (0-3 Hyaline); RBC/HPF 0-3 HPF (0-3); Squamous Epithelial 0-3 HPF (0-3); WBC/HPF None Seen HPF (0-3)
[2018-11-21 10:45] LABS: Urine Culture Reflex Yes Yes
--- NOTE | 2018-11-21 11:14 | OP ---
DATE OF PROCEDURE: 11/20/2018 PREPROCEDURE DIAGNOSIS: Osteoarthritis with painful effusion, left knee. POSTPROCEDURE DIAGNOSIS: Osteoarthritis with painful effusion, left knee. OPERATIVE PROCEDURE: Needle arthrocentesis with intra-articular corticosteroid injection, left knee. HOME TEACHING GRADES 9 THRU 12 TEACHER: Maximiliano Kearns PA-C. ANESTHESIA: None. MEDICATIONS/COMPONENTS USED: 80 mg of Depo-Medrol with 7 mL of 1% lidocaine and a 22-gauge 1.5 inch needle on a 10 mL syringe. INDICATION FOR PROCEDURE: Vitaly is a 68-year-old female who was admitted for right knee arthroplasty yesterday. She has found it difficult to ambulate on her left knee, which is now bearing most of her weight and requests an intra-articular corticosteroid injection due to discomfort and swelling, which has been generated. I have discussed this with Dr. Miller and he has requested me to go ahead and inject her knee. After informed consent was obtained, the area of the left knee was then prepped and draped in usual sterile fashion. 8 mL of Depo-Medrol mixed with 7 mL of 1% xylocaine without epinephrine was then mixed in a 10 mL syringe. The knee was placed into a flexed position and an anterolateral parapatellar tendon approach was used and 8 mL of the mixture was then injected into the knee capsule without any back pressure. The needle was withdrawn. There was no bleeding active and the patient tolerated the procedure well without any complications. Sterile dressing was applied and the procedure terminated without any complications. Job ID: [id number]
[2018-11-21] MEDS: Ropivacaine HCl/PF 250 ML in Premix Bag 1 BAG NERVE BLCK SCH (13:24)
[2018-11-21] MEDS: Doxazosin Mesylate 1 MG TAB PO SCH (21:17)
[2018-11-21] MEDS: diphenhydrAMINE 25 MG CAP PO SCH (21:19)
[2018-11-21] MEDS ORDERED: Cepastat Lozenges 1 LOZ PO PRN (21:35)
[2018-11-22] MEDS: traMADol HCl 50 MG TAB PO PRN ×2 (05:29→12:40)
[2018-11-22] MEDS: cycloSPORINE, Modified 100 MG CAP PO SCH (08:59)
[2018-11-22] MEDS: Carvedilol 6.25 MG TAB PO SCH (09:00)
[2018-11-22] MEDS: Folic Acid 1 MG TAB PO SCH (09:00)
[2018-11-22] MEDS: Amlodipine 10 MG TAB PO SCH (09:00)
[2018-11-22] MEDS: Multivitamin W/ Minerals 1 TAB PO SCH (09:00)
[2018-11-22] MEDS: Aspirin 81 mg Enteric Coated Tablet PO SCH (09:00)
[2018-11-22] MEDS: Ferrous Gluconate 324 MG TAB PO SCH (09:00)
[2018-11-22] MEDS: Loteprednol Etabonate 0.5% Ophth Suspension 5 ml Bottle EA EYE SCH (09:01)
[2018-11-22] MEDS: Chlorthalidone 25 MG TAB PO SCH (09:01)
[2018-11-22] MEDS: Polyethylene Glycol 3350 17 GM Packet PO SCH (09:01)
[2018-11-22] MEDS: Senokot S 8.6-50 MG TAB PO SCH (09:01)
--- NOTE | 2018-11-22 09:11 | PRG ---
DATE OF SERVICE: 11/22/2018 SUBJECTIVE: Ms. Haider is a 68-year-old female, who is postop day #2 from a right total knee arthroplasty and a left knee intra-articular corticosteroid injection. She is doing relatively well. She feels better today and she is more alert according to staff. Physical therapy notes reflect that she is walking anywhere from 20-60 feet with standby assist of 1. She is able to get in and out of her chair independently, but she is not as far along as I would hope at this point. OBJECTIVE: VITAL SIGNS: Temperature 98.6, pulse 78, blood pressure is 156/95, respiratory rate is 20, unlabored with O2 saturation of 96% on room air. GENERAL: She is alert, oriented, responsive and appropriate with examiner. No focal deficits. Visual inspection of right lower extremity demonstrates her to have good dorsiflexion, inversion, eversion. Incision, no strike through. Left knee, her effusion has gone down. IMPRESSION: A 68-year-old female, postoperative day #3 right total knee arthroplasty, doing well. PLAN: Continue current care. Probable discharge today, but see how she does. She tells me that her will be with her around the clock at home and she has family members that will be helping as well as home health scheduled. I will recheck the patient this afternoon, consider discharge to home. Job ID: [id number]
[2018-11-22 11:41] VITALS: BP 149/74; TEMP 98.1
== END 2018-11-22 14:40 | disposition home health service (06) | DRG 470 ==
LOC: SJJU 11-19 05:17
PROVIDERS: ADMIT Orthopaedic Surgery; ATTEND Orthopaedic Surgery
PROC: 0SRC0J9 Replacement of Right Knee Joint with Synthetic Substitute, Cemented, Open Approach (ICD-10-PCS; principal; 2018-11-19)
PROC: 3E0U33Z Introduction of Anti-inflammatory into Joints, Percutaneous Approach (ICD-10-PCS; 2018-11-20)
PROC: 3E0U3BZ Introduction of Anesthetic Agent into Joints, Percutaneous Approach (ICD-10-PCS; 2018-11-20)
DX: M17.0 Bilateral primary osteoarthritis of knee (principal); N39.0 Urinary tract infection, site not specified; I10 Essential (primary) hypertension; M06.9 Rheumatoid arthritis, unspecified; L40.9 Psoriasis, unspecified; M25.462 Effusion, left knee; E66.9 Obesity, unspecified; K21.9 Gastro-esophageal reflux disease without esophagitis; Z88.2 Allergy status to sulfonamides; Z88.1 Allergy status to other antibiotic agents; Z68.35 Body mass index [BMI] 35.0-35.9, adult
CPT/HCPCS: 36415; 81001; 85027; 87086; C1713; C1776; J0670; J1030; J2001; J2250; J2405; J2550; J2704; J2795; J3010; J3370; J7050; J7502; Q0163

== ENCOUNTER 2019-02-22 09:51 | Outpatient (CLI) | payer MEDICARE ==
--- NOTE | 2019-02-22 10:34 | RAD ---
XR Lumbar Spine 2 Or 3 View History: [Low back pain. M 54.5] Comparison: Radiograph 2018 Findings: There are 5 nonrib-bearing lumbar type vertebrae. Advanced degenerative disc space height l oss throughout the lumbar spine greatest from L2-L5. There is anterolisthesis of L4 over L5, grade 2, approximately 7 mm. Large bridging anterior osteophytes. Prior laminectomy changes L3-L5. IMPRESSION: Advanced degenerative disc space disease throughout the lumbar spine, similar to the 2018 exam.
== END 2019-02-22 09:52 | disposition home or self-care (01) ==
LOC: RAD 09:51
PROVIDERS: ATTEND Allergy & Immunology
DX: M54.5 Low back pain (principal); M51.36 Other intervertebral disc degeneration, lumbar region
CPT/HCPCS: 36415; 72100; 80053; 80061; 81003; 81015; 82306; 84550; 85025

== ENCOUNTER 2019-03-19 12:23 | Outpatient (CLI) | payer MEDICARE ==
--- NOTE | 2019-03-19 12:43 | RAD ---
RADIOGRAPH RIGHT KNEE 3 VIEWS: 03/19/2019 HISTORY: Posttraumatic pain after fall FINDINGS: Resurfacing changes of articular surfaces of distal femur, patella, and tibial plateau. Metallic pros theses cover the resurfaced articular surfaces of distal femur and tibial plateau. No acute fracture or loosening of hardware are identified. Suprapatellar joint effusion. Thin, long exostosis from anterior surface of distal femoral metadiaphyseal cortex. No evidence of hardware loosening. IMPRESSION: 1. Status post total right knee replacement arthroplasty. 2. No evidence of fracture. 3. Joint effusion.
== END 2019-03-19 12:24 | disposition home or self-care (01) ==
LOC: SCSRAD 12:23
PROVIDERS: ATTEND Family Medicine
DX: M25.561 Pain in right knee (principal); M25.461 Effusion, right knee; Z96.651 Presence of right artificial knee joint

== ENCOUNTER 2019-04-02 14:33 | Outpatient (CLI) | payer MEDICARE ==
--- NOTE | 2019-04-02 15:47 | RAD ---
LUMBAR SPINE 4 VIEWS: HISTORY: Low back pain. Fall. COMPARISON: Radiograph of 02/22/2019. FINDINGS: Laminectomy changes at L3, L4, and L5. There is anterolisthesis of L4 over L5 12 mm. Multilevel deg enerative disk space height loss throughout the lumbar spine. This is most severe at L5-S1. Likely an old injury of the sacrum at S5. No acute compression deformity. The anterolisthesis of L4 over L5 does decrease with extension. IMPRESSION: Multilevel severe degenerative changes with abnormal translation of L4 over L5 in extension. POS: HOME
== END 2019-04-02 14:34 | disposition home or self-care (01) ==
LOC: TBSIIMAG 14:33
PROVIDERS: ATTEND Neurological Surgery
DX: M54.5 Low back pain (principal); W19.XXXA Unspecified fall, initial encounter; M47.816 Spondylosis without myelopathy or radiculopathy, lumbar region
CPT/HCPCS: 72110

== ENCOUNTER 2019-04-24 14:00 | Inpatient (IN) | payer MEDICARE ==
[2019-04-24 14:15] VITALS: BMI 35.5
[2019-04-29] MEDS ORDERED: ceFAZolin Sodium (SDC) 2 GM/100 ML BAG ONE (06:57)
[2019-04-29] MEDS ORDERED: Sodium Chloride 0.9% 10 ML ONE (09:06)
[2019-04-29] MEDS ORDERED: Fentanyl 100 MCG/2 ML VIAL ONE ×4 (09:21→11:45)
--- NOTE | 2019-04-29 11:20 | OP ---
DATE OF PROCEDURE: 04/29/2019 SENIOR PROFESSIONAL SERVICES CONSULTANT: Madison Clemente PA-C PROCEDURE PERFORMED: L4-L5 laminectomy, posterolateral arthrodesis, pedicle screw instrumentation L4-L5, demineralized bone matrix and local morselized autograft. DESCRIPTION OF PROCEDURE: The patient was brought to the operating room and intubated. She was rolled in the prone position on gel-filled chest rolls. The previous incision was reopened and the levels were identified. We exposed the L4-L5 level bilaterally and using Kerrison's performed modest bilateral decompression. We next placed pedicle screws at L4 and L5 bilaterally using lateral fluoroscopic guidance. The joao was secured between the screws, connected by nuts, which were final tightened. The wound was then extensively irrigated and MAC hemostasis was secured. A combination of demineralized bone matrix and local morselized autograft was laid over the lamina and posterolateral surfaces for the purpose of arthrodesis. Vancomycin powder was applied and the wound was then closed in anatomic layers. Job ID: [id number]
[2019-04-29] MEDS ORDERED: HYDROmorphone 2 MG/ML VIAL ONE (11:25)
[2019-04-29] MEDS ORDERED: diphenhydrAMINE 50 MG/ML VIAL IVP PRN (14:22)
[2019-04-29] MEDS ORDERED: Mag-Al 1200 mg/1200 mg/30 ML UDCUP PO PRN (14:22)
[2019-04-29] MEDS ORDERED: traMADol HCl 50 MG TAB PO PRN (14:22)
[2019-04-29] MEDS ORDERED: Bisacodyl 10 MG SUPP PR PRN (14:22)
[2019-04-29] MEDS ORDERED: Promethazine 25 MG TAB PO PRN (14:22)
[2019-04-29] MEDS ORDERED: HYDROcodone/Acetaminophen 10/325 mg Tablet PO PRN ×2 (14:22)
[2019-04-29] MEDS ORDERED: tiZANidine HCl 4 MG TAB PO PRN (14:22)
[2019-04-29] MEDS ORDERED: diphenhydrAMINE 25 MG CAP PO PRN (14:22)
[2019-04-29] MEDS ORDERED: Ondansetron PF 4 MG/2 ML Vial IM PRN (14:22)
[2019-04-29] MEDS ORDERED: Promethazine HCl 25 MG/ML VIAL IM PRN (14:22)
[2019-04-29] MEDS ORDERED: Morphine 4 MG/ML VIAL SLOW IVP PRN (14:22)
[2019-04-29] MEDS ORDERED: Promethazine HCl 12.5 MG SUPP PR PRN (14:22)
[2019-04-29] MEDS ORDERED: Acetaminophen 500 MG TAB PO PRN (14:26)
[2019-04-29] MEDS ORDERED: DUPIXENT IM SCH (14:30)
[2019-04-29] MEDS ORDERED: Leflunomide 10 mg Tablet PO PRN (14:33)
[2019-04-29] MEDS ORDERED: Loteprednol Etabonate 0.5% Ophth Suspension 5 ml Bottle EA EYE PRN (14:33)
[2019-04-29] MEDS ORDERED: [UNRECOGNIZED DRUG - OTHER] TOP PRN (14:35)
[2019-04-29] MEDS: Sodium Chloride 0.9% 1,000 ML IV SCH (15:46)
[2019-04-29] MEDS ORDERED: Cepastat Lozenges 1 LOZ PO PRN (18:32)
--- NOTE | 2019-04-29 19:30 | CON ---
DATE OF CONSULTATION: 04/29/2019 REQUESTING PHYSICIAN: Dr. Jansen of Neurosurgery. PURPOSE: Medical management. HISTORY OF PRESENT ILLNESS: This is a 68-year-old female, who is now status post L4-L5 laminectomy with Dr. Jansen today for low back pain. The patient only complains of a scratchy throat currently. She denies any chest pain or difficulty breathing, denies any nausea, vomiting, or abdominal pain. She was overall feeling well prior to this surgery. PAST MEDICAL HISTORY: 1. Hypertension. 2. Psoriasis. 3. Arthritis. 4. GERD. 5. Seasonal allergies. 6. Back pain. PAST SURGICAL HISTORY: 1. Past surgical history is for surgery today. 2. Hysterectomy and BSO. 3. Bilateral cataracts. 4. Right knee replacement. 5. Prior lumbar laminectomy in 2017. FAMILY HISTORY: Significant for hypertension, heart disease and cancer. SOCIAL HISTORY: The patient is retired, lives with her , no tobacco or alcohol, her is her surrogate decision maker and she is a full code. MEDICATIONS: Medications are reconciled with the patient. 1. Milk of magnesia daily while on pain medicine. 2. Acetaminophen 500 mg as needed. 3. Amlodipine 5 mg daily. 4. Carvedilol 25 mg once daily in the morning. 5. Chlorthalidone 25 mg daily. 6. Vitamin D3 of 2000 units daily. 7. Cyclosporine 100 mg b.i.d. 8. Benadryl 50 mg at bedtime only if needed and none recently. 9. Doxazosin 1 mg in the evening. 10. Dupilumab 150 mg every 14 days IM. Her last one was on April 25 and they are q.2 weeks. 11. Eurisa topical b.i.d. 12. Folic acid 1 mg daily. 13. Arava 10 mg daily as needed for psoriasis flare. 14. Lotemax 1 to 2 drops each eye b.i.d. as needed for eye symptoms. 15. Protonix 40 mg daily. 16. Triamcinolone as needed for psoriasis flare. ALLERGIES: 1. BIAXIN. 2. METHOTREXATE. 3. SULFA. REVIEW OF SYSTEMS: Positive for scratchy throat and some left-sided pain post surgery. All remaining review of systems is reviewed and negative. PHYSICAL EXAMINATION: VITAL SIGNS: Blood pressure 145/65, pulse 55, respirations 18, sats 95% on room air. GENERAL: Awake, alert, responsive, in no apparent distress. Able to speak in full sentences. HEENT: Pupils are equal and round. Oral mucosa is pink and moist. NECK: Supple, nontender. LYMPHATICS: No palpable cervical or supraclavicular lymphadenopathy. LUNGS: Clear to auscultation bilaterally with good air movement. No audible wheezing, rhonchi, or rales. HEART: Normal S1, S2. Regular rate and rhythm. No significant murmurs. ABDOMEN: Soft. Present bowel sounds. Nontender, nondistended. EXTREMITIES: No clubbing, cyanosis, or edema. SKIN: No visible rashes. NEURO: No gross deficits. VASCULAR: 2+ dorsalis pedis pulses. PSYCH: Appears euthymic. LABORATORY DATA: Preoperative labs reviewed. CBC; 7.0, 11.8, 35.5, 258. Renal panel; 140, 4.1, 103, 26, 27, 1.24, glucose of 83. EKG, personally reviewed sinus rhythm, bradycardia with a rate of 54, normal axis, normal intervals, and no ST changes. IMPRESSION: 1. Status post L4-L5 laminectomy today with Dr. Jansen. 2. Hypertension, appears controlled. 3. Psoriasis, appears controlled. 4. Mild anemia. 5. Mildly elevated creatinine pre-operatively, uncertain baseline. 6. Obesity. 7. Seasonal allergies. 8. Gastroesophageal reflux disease. PLAN: 1. Postoperative care per Dr. Jansen. 2. Monitoring creatinine, we will check daily while patient is here. 3. Her medications are reviewed and adjusted to the patient's reported use of them, hold parameters placed on her antihypertensives to avoid hypotension. 4. I discontinued the diphenhydramine at night given that patient does not use this on a regular basis. 5. Discontinued her psoriasis medications that are as needed for flares as she is not undergoing a flare. 6. We will follow along with the patient daily while she is here. 7. DVT prophylaxis per Neurosurgery. 8. GI prophylaxis not indicated. 9. Code status is full and surrogate decision maker is the patient's . 10. Reviewed the role of the hospitalist with the patient. No questions or further needs at the end of evaluation. Thank you for including us in the patient's care. Please call or message with any questions. Job ID: [id number] [facility]
[2019-04-29] MEDS ORDERED: diphenhydrAMINE 50 MG CAP PO SCH (21:00)
[2019-04-29] MEDS: Doxazosin Mesylate 1 MG TAB PO SCH ×3 (21:49→21:59)
[2019-04-29] MEDS: cycloSPORINE, Modified 100 MG CAP PO SCH (21:50)
[2019-04-29] MEDS: CEFAZOLIN 2 GM, Admixture Fee 1 EACH in Sodium Chloride 0.9% 100 ML IVPB SCH (21:50)
[2019-04-29] MEDS: Triamcinolone 0.1% Dental Paste 5 GM TUBE TOP SCH (21:50)
[2019-04-30] MEDS: Sodium Chloride 0.9% 1,000 ML IV SCH ×2 (05:03→17:31)
[2019-04-30] MEDS: CEFAZOLIN 2 GM, Admixture Fee 1 EACH in Sodium Chloride 0.9% 100 ML IVPB SCH (05:24)
[2019-04-30 05:46] LABS: #Lymphocytes 0.7 thou/uL (1.20-3.40); #Monocytes 1.4 thou/uL (0.11-0.59); #Neutrophils 9.5 thou/uL (1.40-6.50); %Basophils 0.3 % (0.0-1.0); %Eosinophils 0.1 % (0.0-10.0); %Monocytes 11.8 % (0.0-10.0); %Neutrophils 81.8 % (42.0-75.0); Hemoglobin 11.1 g/dL (12.0-16.0); Mean Corpuscular HGB CONC 33.3 g/dL (32.0-36.0); Mean Corpuscular Hemoglobin 31.3 pg (27.0-31.0); Mean Corpuscular Volume 94.1 fL (78.0-98.0); Mean Platelet Volume 8.3 fL (7.4-10.4); Platelet Count 233 thou/uL (130-400); RBC Distribution Width 12.3 % (11.5-14.5); Red Blood Cell (RBC) Count 3.55 mill/uL (4.20-5.40); White Blood Cell (WBC) Count 11.7 thou/uL (4.8-10.8)
[2019-04-30 06:03] LABS: Anion Gap 13 mmol/L (10-20); BUN (Urea Nitrogen) 32 mg/dL (9.8-20.1); Calc. Creatinine Clearance 99 mL/min (70-130); Calcium 9.5 mg/dL (7.8-10.44); Carbon Dioxide 24 mmol/L (23-31); Chloride 105 mmol/L (98-107); Estimated GFR-MDRD 79; Glucose 102 mg/dL (80-115); Potassium 3.9 mmol/L (3.5-5.1); Sodium 138 mmol/L (136-145)
--- NOTE | 2019-04-30 06:43 | PRG ---
DATE OF SERVICE: 04/30/2019 SUBJECTIVE: The patient is a 68-year-old female postoperative day #1, status post L4-L5 decompression and fusion. Following the surgery, she was transitioned to the floor, where her pain has been well-controlled with p.o. medications, she is tolerating a regular diet, and she is voiding appropriately. She has only ambulated short distance back and forth to the bathroom and has not yet worked with Physical Therapy. OBJECTIVE: On exam this morning, she is awake, alert, in no acute distress. She has free active range of motion of all extremities. No focal motor weakness. No reflex asymmetry. No incisional drainage issues. PLAN: We will plan to continue to mobilize today and work with Physical therapy. I anticipate home in the morning. Job ID: [id number]
[2019-04-30] MEDS: Acetaminophen 500 MG TAB PO PRN ×3 (08:21→21:07)
[2019-04-30] MEDS: Folic Acid 1 MG TAB PO SCH (08:22)
[2019-04-30] MEDS: Amlodipine 5 MG TAB PO SCH (08:22)
[2019-04-30] MEDS: cycloSPORINE, Modified 100 MG CAP PO SCH ×2 (08:22→21:02)
[2019-04-30] MEDS: Carvedilol 25 MG TAB PO SCH (08:22)
[2019-04-30] MEDS: Triamcinolone 0.1% Dental Paste 5 GM TUBE TOP SCH ×2 (08:23→21:05)
[2019-04-30] MEDS: Chlorthalidone 25 MG TAB PO SCH (08:27)
[2019-04-30] MEDS ORDERED: Chlorthalidone 25 MG TAB PO SCH (09:00)
[2019-04-30] MEDS ORDERED: Prevnar 13-Val Conj/PF 0.5 ML SYRINGE IM ONE (09:00)
[2019-04-30] MEDS ORDERED: Amlodipine 5 MG TAB PO SCH (09:00)
[2019-04-30] MEDS ORDERED: Carvedilol 25 MG TAB PO SCH (09:00)
[2019-04-30] MEDS: Milk Of Magnesia 30 ML UDCUP PO PRN (09:07)
--- NOTE | 2019-04-30 11:44 | PRG ---
DATE OF SERVICE: 04/30/2019 SUBJECTIVE: The patient was seen and examined at bedside. She just did physical therapy session, so she has some pain in her back, which is rated around 4 or 5. She took some Tylenol for that. Her appetite is fair. OBJECTIVE: VITAL SIGNS: Blood pressure is 168/71, pulse is 60, respiratory rate is 20, O2 saturation is 96% on room air, and her temperature is 98.1. HEENT: Head is atraumatic and normocephalic. Eyes are PERRLA. Sclerae are nonicteric. Oral mucosa is moist. NECK: Supple. LUNGS: Clear. HEART: S1, S2 normal. ABDOMEN: Soft, nontender, nondistended. EXTREMITIES: No clubbing, cyanosis, or edema. NEUROLOGIC: She is alert and oriented x4. There are no any motor or sensory deficits present. Cranial nerves are intact. LABORATORY DATA: Labs showed white count of 11.7, hemoglobin 11.1, hematocrit 33.4, and platelet count is 233,000. Normal electrolytes. BUN of 32, creatinine 0.87, calcium 9.5, and glucose 102. IMPRESSION: 1. Status post L4-L5 laminectomy. 2. Hypertension. 3. Psoriasis. 4. Mild anemia. 5. Obesity. 6. Gastroesophageal reflux disease. DISCUSSION: The patient is doing well postop. Her blood pressure was running on the higher side, but the reading which was just done shows that her systolic blood pressure is significantly improved with current regimen. She is on her home medications. We will continue all of them. We will continue pain management with [place] and Tylenol p.r.n. and tramadol as needed. We will continue PT, and she should be able to go home tomorrow. Job ID: [id number]
[2019-04-30] MEDS ORDERED: Benzocaine (Dental) 20% 10 gm Tube TOP PRN (17:17)
[2019-04-30] MEDS: Doxazosin Mesylate 1 MG TAB PO SCH (21:02)
[2019-05-01] MEDS: traMADol HCl 50 MG TAB PO PRN ×3 (00:33→10:55)
[2019-05-01 06:20] LABS: Anion Gap 8 mmol/L (10-20); BUN (Urea Nitrogen) 32 mg/dL (9.8-20.1); Calc. Creatinine Clearance 101 mL/min (70-130); Calcium 9.4 mg/dL (7.8-10.44); Carbon Dioxide 27 mmol/L (23-31); Chloride 104 mmol/L (98-107); Estimated GFR-MDRD 81; Glucose 90 mg/dL (80-115); Potassium 3.9 mmol/L (3.5-5.1); Sodium 135 mmol/L (136-145)
[2019-05-01 08:10] VITALS: BP 138/60; TEMP 98.1
[2019-05-01] MEDS: Acetaminophen 500 MG TAB PO PRN (08:37)
[2019-05-01] MEDS: Milk Of Magnesia 30 ML UDCUP PO PRN (08:39)
[2019-05-01] MEDS: Folic Acid 1 MG TAB PO SCH (08:39)
[2019-05-01] MEDS: Triamcinolone 0.1% Dental Paste 5 GM TUBE TOP SCH (08:40)
[2019-05-01] MEDS: Amlodipine 5 MG TAB PO SCH (08:40)
[2019-05-01] MEDS: cycloSPORINE, Modified 100 MG CAP PO SCH (08:41)
[2019-05-01] MEDS: Carvedilol 25 MG TAB PO SCH (08:41)
[2019-05-01] MEDS: Sodium Chloride 0.9% 1,000 ML IV SCH (08:42)
[2019-05-01] MEDS: Chlorthalidone 25 MG TAB PO SCH (08:45)
--- NOTE | 2019-05-01 11:18 | DIS ---
DATE OF ADMISSION: 04/29/2019 DATE OF DISCHARGE: 05/01/2019 HOSPITAL COURSE: The patient is a 68-year-old female, who underwent L4-L5 decompression and fusion for lumbar stenosis with spondylolisthesis on 04/29/2019. Following the surgery, she was transitioned to the floor, where her pain has been well-controlled with p.o. medications, she is tolerating regular diet, and she is voiding appropriately. She has been working with Physical Therapy and has been ambulating up and down the halls. She has no incisional issues. On exam this morning, she is awake, alert, in no acute distress. She has free active range of motion in all extremities. No focal motor weakness. No reflex asymmetry. We will plan to dismiss the patient home. I have discussed home care precautions. We will follow up with her in 2 weeks. She has been provided scripts for [place], Zanaflex and Keflex. Job ID: [id number]
== END 2019-05-01 11:01 | disposition home or self-care (01) | DRG 460 ==
LOC: SJJU 04-29 06:22 → 3SE 04-29 13:51
PROVIDERS: ADMIT Neurological Surgery; ATTEND Neurological Surgery
PROC: 0SG0071 Fusion of Lumbar Vertebral Joint with Autologous Tissue Substitute, Posterior Approach, Posterior Column, Open Approach (ICD-10-PCS; principal; 2019-04-29)
DX: M48.061 Spinal stenosis, lumbar region without neurogenic claudication (principal); I10 Essential (primary) hypertension; K21.9 Gastro-esophageal reflux disease without esophagitis; Z96.651 Presence of right artificial knee joint; L40.9 Psoriasis, unspecified; D64.9 Anemia, unspecified; E66.9 Obesity, unspecified; Z68.35 Body mass index [BMI] 35.0-35.9, adult; Z90.710 Acquired absence of both cervix and uterus; Z98.41 Cataract extraction status, right eye; Z79.899 Other long term (current) drug therapy; Z88.2 Allergy status to sulfonamides; Z87.01 Personal history of pneumonia (recurrent); Z88.1 Allergy status to other antibiotic agents; F32.9 Major depressive disorder, single episode, unspecified; M43.16 Spondylolisthesis, lumbar region
CPT/HCPCS: 36415; 76000; 80048; 85025; 94660; C1713; C1768; J0131; J0690; J1170; J3010; J3370; J3490; J7502

== ENCOUNTER 2019-05-15 08:57 | Outpatient (CLI) | payer MEDICARE ==
--- NOTE | 2019-05-15 10:43 | RAD ---
Lumbar spine series 2 views: HISTORY: Followup back surgery done on April 29. COMPARISON: 02/22/2019 study. FINDINGS: Bilateral pedicle screws are placed at the L4-5 level. The spondylolisthesis of L4 on L5 is similar to the prior exam. Disk narrowing at L5-S1 is present. Postoperative changes of this level are agai n noted. They were present on the prior study. There also now appear to be some laminectomy changes at the L3-4 level. IMPRESSION: Postoperative changes of the spine as described above. POS: [facility]
== END 2019-05-15 08:58 | disposition home or self-care (01) ==
LOC: TBSIIMAG 08:57
PROVIDERS: ATTEND Neurological Surgery
DX: M48.061 Spinal stenosis, lumbar region without neurogenic claudication (principal); Z98.890 Other specified postprocedural states
CPT/HCPCS: 72100

== ENCOUNTER 2019-09-10 01:19 | Inpatient (IN) | payer MEDICARE ==
[2019-09-10] MEDS ORDERED: Morphine 4 MG/ML VIAL ONE (02:11)
[2019-09-10] MEDS ORDERED: Ondansetron PF 4 MG/2 ML Vial ONE ×2 (02:11→02:12)
[2019-09-10 02:12] LABS: Hemoglobin 11.2 g/dL (12.0-16.0); Mean Corpuscular HGB CONC 33.7 g/dL (32.0-36.0); Mean Corpuscular Hemoglobin 31.1 pg (27.0-31.0); Mean Corpuscular Volume 92.1 fL (78.0-98.0); RBC Distribution Width 11.9 % (11.5-14.5)
[2019-09-10 02:27] LABS: Mean Platelet Volume 7.9 fL (7.4-10.4); Platelet Count 269 thou/uL (130-400); Red Blood Cell (RBC) Count 3.61 mill/uL (4.20-5.40); White Blood Cell (WBC) Count 9.6 thou/uL (4.8-10.8)
[2019-09-10 02:28] LABS: Band 31 % (5-11); Eosinophils 2 % (0-10); MDiff Complete? YES; Monocytes 4 % (0-10); Neutrophil 63 % (42-75)
[2019-09-10 02:29] LABS: ALT (SGPT) 7 U/L (8-55); AST (SGOT) 15 U/L (5-34); Albumin 3.6 g/dL (3.4-4.8); Alkaline Phosphatase 94 U/L (40-110); Anion Gap 15 mmol/L (10-20); BUN (Urea Nitrogen) 33 mg/dL (9.8-20.1); Bilirubin, Total 0.7 mg/dL (0.2-1.2); Calc. Creatinine Clearance 0 mL/min (70-130); Calcium 9.1 mg/dL (7.8-10.44); Carbon Dioxide 22 mmol/L (23-31); Chloride 100 mmol/L (98-107); Estimated GFR-MDRD 36; Globulin 2.9 g/dL (2.4-3.5); Glucose 138 mg/dL (80-115); Potassium 3.1 mmol/L (3.5-5.1); Protein, Total 6.5 g/dL (6.0-8.3); Sodium 134 mmol/L (136-145)
[2019-09-10] MEDS ORDERED: Sodium Chloride 0.9% 1,000 ML IV SCH (06:30)
[2019-09-10 07:17] VITALS: BMI 37.7
[2019-09-10] MEDS ORDERED: Diabetic Tussin 200 MG/10 ML UDCUP PO PRN (07:32)
[2019-09-10] MEDS ORDERED: Loperamide HCl 2 MG CAP PO PRN (07:32)
[2019-09-10] MEDS ORDERED: Calcium Carbonate 500 MG ChewTAB PO PRN (07:32)
[2019-09-10] MEDS ORDERED: Ondansetron PF 4 MG/2 ML Vial IVP PRN (07:32)
[2019-09-10] MEDS ORDERED: Ondansetron ODT 4 MG TAB PO PRN (07:32)
[2019-09-10] MEDS ORDERED: Artificial Tears 18 DROP/0.9 ML EA EYE PRN (07:32)
[2019-09-10] MEDS ORDERED: Sodium Chloride 0.65% Nasal 44 ML BOT EA NARE PRN (07:32)
[2019-09-10] MEDS ORDERED: HYDROcodone/Acetaminophen 5/325 mg Tablet PO PRN (07:32)
[2019-09-10] MEDS ORDERED: Acetaminophen 325 MG TAB PO PRN (07:32)
[2019-09-10] MEDS ORDERED: Bisacodyl 10 MG SUPP PR PRN (07:32)
[2019-09-10] MEDS ORDERED: Loratadine 10 MG TAB PO PRN (07:32)
[2019-09-10] MEDS ORDERED: Senokot S 8.6-50 MG TAB PO PRN (07:32)
[2019-09-10] MEDS ORDERED: Zolpidem Tartrate 5 MG TAB PO PRN (07:32)
[2019-09-10] MEDS ORDERED: hydrALAZINE 20 MG/ML VIAL SLOW IVP PRN (07:32)
[2019-09-10] MEDS: Famotidine 20 MG TAB PO SCH (08:38)
[2019-09-10] MEDS: Enoxaparin Sodium 30 MG/0.3 ML SYRINGE SC SCH (08:38)
--- NOTE | 2019-09-10 08:38 | CT ---
PRELIMINARY REPORT/[facility]/EMERGENCY AFTER HOURS PROCEDURE: EXAM: CT Abdomen and Pelvis Without Intravenous Contrast CLINICAL HISTORY: F69 presents to ED via EMS s/p syncopal episode. Pt c/o N/V/D, onset 3 days ago with associated LLQ p ain. Patient reports that she passed out on the toilet and her called EMS. Reports that she h as been unable to keep anything down the past 3 days. Pt takes an immunosuppresant for psoriasis that she reports causes syncopal episodes fairly often. Patient had a normal previous colonoscopy and has another scheduled in September. Denies CP, SOB, and fever. Denies blood in stool or vomit. Denies card iac hx. PMHx of HTN. TECHNIQUE: Axial computed tomography images of the abdomen and pelvis without intravenous contrast. CONTRAST: None. COMPARISON: None provided. FINDINGS: LUNG BASES: No basilar airspace consolidation or pleural effusion. LIVER: There are 2 cystic lesions in the liver with the larger one measuring about 2.5 x 4.1 cm in th e right hepatic lobe. GALLBLADDER AND BILE DUCTS: Unremarkable. No calcified stone. No ductal dilation. PANCREAS: Unremarkable. SPLEEN: Unremarkable. ADRENAL GLANDS: Unremarkable. KIDNEYS, URETERS, AND BLADDER: Unremarkable. No hydronephrosis or nephrolithiasis. No ureteral or beatriz dder calculi. STOMACH AND BOWEL: No obstruction. No wall thickening. No CT evidence of colitis or acute diverticuli tis. APPENDIX: No CT evidence for appendicitis. PERITONEUM: No free fluid. No free air. LYMPH NODES: No lymphadenopathy. REPRODUCTIVE: Unremarkable as visualized. VASCULATURE: No aortic aneurysm. ABDOMINAL WALL AND SOFT TISSUES: Unremarkable. BONES: There is extensive degenerative and discogenic disease of the lumbar spine with a grade 1 ante rior spondylolisthesis of L4 on L5. IMPRESSION: No acute intra-abdominal or pelvic abnormality. ELECTRONICALLY SIGNED BY: Milagro Davis MD Sep 10, 2019 3:08:19 AM LACTATION CONSULTANT This report is intended for review by the ordering physician only, in accordance of law. If you recei ve this report in error, please call [facility] at [phone]. FINAL REPORT ABDOMEN CT WITHOUT CONTRAST PELVIC CT WITHOUT CONTRAST: Date: 09/10/19 HISTORY: Syncope. Left lower quadrant pain. FINDINGS/IMPRESSION: Multiple hypodensities in the liver, compatible with cysts. Bilaterally, no evidence of obstructive u ropathy. No evidence of bowel obstruction. Normal caliber appendix. This report is in agreement with the initial report by [facility]. POS: OFF
[2019-09-10] MEDS: 1/2 NS w/KCL 20 mEq 1,000 ML IV SCH ×3 (08:39→21:10)
--- NOTE | 2019-09-10 09:12 | RAD ---
Exam: Chest one view HISTORY:Nausea. Vomiting. Weakness. Comparison: 01/17/2018 FINDINGS: Cardiac silhouette: Normal Aorta: Unremarkable Pulmonary vessels: Normal Costophrenic angles: Clear LUNGS: Diminished lung volumes, likely due to a poor inspiratory effort. No masses or consolidation. Pneumothorax: None Osseous abnormalities: None IMPRESSION: 1. No acute cardiopulmonary process. 2. Diminished lung volumes, likely due to a poor inspiratory effort.
--- NOTE | 2019-09-10 10:50 | HP ---
PRIMARY CARE PHYSICIAN: Yocasta Ng MD. REASON FOR ADMISSION: Gastroenteritis, acute kidney injury. HISTORY OF PRESENT ILLNESS: A 69-year-old female, who reports that all symptoms started with coughing episode. The patient did not have any upper respiratory infection. The patient did not have any fever or chills. She was not having any pleuritic chest pain. The patient was not feeling good on that day and she was taking Mucinex without any improvement. The patient was trying to treat herself with medication and subsequently she was having nausea, vomiting, and diarrhea. All symptoms started on Monday. The patient was having lower abdominal crampy pain. The patient was also not eating enough and she was feeling weak secondary to nausea, vomiting, diarrhea, and unable to eat. Last night when the patient was in toilet for her diarrhea, she passed out and subsequently paramedics was called and the patient regained consciousness. The patient has underlying history of psoriasis and she is taking cyclosporine and she has cholesterol problem and she is taking Lipitor. In the emergency room, this patient was evaluated with routine blood test and the patient was found with bandemia, acute kidney injury, and abnormal electrolytes. She had a chest x-ray , which was unremarkable and CT abdomen and pelvis did not show any acute abdominal process, but there was multiple hypodensity in the liver compatible with cyst. In the emergency room, the patient was treated with IV fluid, morphine, Zofran, and subsequently she was admitted to medical floor. The patient denies any antibiotic exposure or any sick exposure or recent travel or outside food ingestion. REVIEW OF SYSTEMS: CONSTITUTIONAL: Negative for weight loss or gain, ability to conduct usual activities. SKIN: Negative for rash, itching. EYES: Negative for double vision, pain. ENT/MOUTH: Negative for nose bleeding, neck stiffness, pain, tenderness. CARDIOVASCULAR: Negative for palpitations, dyspnea on exertion, orthopnea. RESPIRATORY: Negative for shortness of breath, wheezing, cough, hemoptysis, fever or night sweats. GASTROINTESTINAL: Negative for poor appetite, abdominal pain, heartburn, nausea , vomiting, constipation, or diarrhea. GENITOURINARY: Negative for urgency, frequency, dysuria, nocturia. MUSCULOSKELETAL: Negative for pain, swelling. NEUROLOGIC/PSYCHIATRIC: Negative for anxiety, depression. ALLERGY/IMMUNOLOGIC: Negative for skin rash, bleeding tendency. Please see my HPI for pertinent positives and negatives. All other review of systems reviewed and negative except as mentioned in HPI. MEDICATION: Current home medications; 1. Amlodipine 5 mg daily. 2. Chlorthalidone 25 mg daily. 3. Vitamin D3 2000 units p.o. daily. 4. Cyclosporine 100 mg p.o. b.i.d. 5. Doxazosin 1 mg p.o. evening. 6. Dupixent 150 mg IM every 2 weeks. 7. Arava 10 mg p.o. p.r.n. 8. Zanaflex 4 mg q.6 hourly p.r.n. 9. Coreg 12.5 mg p.o. twice daily. 10. Folic acid 1 mg p.o. daily. 11. Protonix 40 mg p.o. daily. PAST MEDICAL HISTORY: Psoriasis, hypertension, eczema, history of plantar fasciitis, osteoarthritis, dyslipidemia. PAST SURGICAL HISTORY: Hysterectomy, laminectomy, right knee replacement. PAST PSYCHIATRIC HISTORY: Reviewed and negative. SOCIAL HISTORY: The patient lives at home with her and mother. No history of tobacco, alcohol, or illicit drug abuse. ALLERGY: MTX, sulfa, clarithromycin FAMILY HISTORY: No strong family history of premature coronary artery disease, stroke, or cancer. EMERGENCY ROOM COURSE: The patient has received IV fluid 2 L, Zofran, and morphine. PHYSICAL EXAMINATION: VITAL SIGNS: Currently, blood pressure 121/58, pulse 75, respiratory rate 18, temperature 99.2, saturation 96% on room air, weight 106.5 kg. GENERAL: The patient is currently alert, awake, appears weak, but no obvious acute distress. HEENT: Head; normocephalic and atraumatic. Eyes; pupils round, reactive to light. Extraocular muscle intact. ENT; oropharynx within normal limits. Moist mucous membranes. No oral lesion. No pharyngeal erythema. No exudate. NECK: Supple. No JVD. No meningeal signs of irritation. LUNGS: Clear to auscultation without any rhonchi or rales. CARDIAC: S1 and S2 regular. No murmur. No gallop. No rub. ABDOMEN: The patient does have diffuse lower abdominal discomfort, but no peritoneal sign. No guarding. No rigidity. No rebound. No organomegaly. No mass. BACK: Unremarkable. No CVA tenderness. EXTREMITIES: Upper extremities, passive movement of all joints are normal. Lower extremities, no edema. Good distal pulsation. SKIN: No skin rash. HEMATOLOGICAL: No lymphadenopathy. NEUROLOGIC: Nonfocal examination. SIGNIFICANT LABORATORY DATA: CT abdomen and pelvis reported as multiple hypodensities in liver compatible with cysts. No evidence of obstructive uropathy and no acute abdominal process. Chest x-ray based on my review and reported as no acute cardiopulmonary process. CBC; WBC 9.6, hemoglobin 11.2, platelet 269 with bandemia 31. BMP; sodium 134, potassium 3.1, chloride 100, carbon dioxide 22, anion gap 15, BUN 33, creatinine 1.72, glucose 138, calcium 9.1. LFT; AST 15, ALT 7, alkaline phosphatase 94, albumin 3.6. ASSESSMENT AND PLAN: 1. Nausea, vomiting, diarrhea, gastroenteritis, rule out infection. The patient has significant bandemia and that is why we will rule out C diff infection. We will keep for now contact isolation until we rule out C diff infection. The patient has immunocompromised status and that is why she is at risk for Clostridium difficile infection. The patient will be given IV fluid and symptomatic treatment. We will consider adding Flagyl 500 mg IV q.8 hourly and depending upon C diff result, we will consider adding oral vancomycin if needed. 2. Syncope likely due to volume depletion. The patient's blood pressure is low and that is why we will continue with IV fluid at NS with KCl at 125 mL/h. We will check lactic acid and random cortisol. We will monitor the patient's hemodynamics. 3. Acute kidney failure, likely due to prerenal etiology secondary to nausea, vomiting, diarrhea, and poor p.o. intake. The patient will be given IV fluid with half NS with KCl at 125 mL/h. We will avoid nephrotoxins agent and we will repeat labs tomorrow. 4. Abnormal electrolytes with hyponatremia,hypokalemia, and mild metabolic acidosis likely due to all gastroenteritis. The patient is getting IV fluid with potassium and we will check magnesium and phosphorus level tomorrow and we will repeat labs tomorrow. 5. History of hypertension, but currently low blood pressure and that is why we will hold on her antihypertensive medication and will resume depending upon her hemodynamics. 6. History of psoriasis. We will continue home dose of cyclosporine. 7. Anemia, normocytic and normochromic from chronic disease. 8. Obesity with BMI 30 to 40. Dietary education given. 9. Gastroesophageal reflux disease. We will continue Pepcid 20 mg p.o. daily. 10. Deep venous thrombosis prophylaxis. Lovenox 30 mg subcu daily. GI prophylaxis. Pepcid 20 mg p.o. daily. CODE STATUS: The patient is full code. The patient's is surrogate decision maker. DISPOSITION PLAN: Based on clinical course, we are expecting the patient's stay in hospital more than 2 midnights. Plan of care discussed with the patient in detail and we will also start PT evaluation while in the hospital. Job ID: [id number] MTDD
[2019-09-10 14:11] LABS: Lactic Acid 1.7 mmol/L (0.5-2.2)
[2019-09-10] MEDS: metroNIDAZOLE 500 MG in Premix Bag 1 BAG IVPB SCH ×2 (14:15→21:10)
[2019-09-11 06:15] LABS: Phosphorus 2.1 mg/dL (2.3-4.7)
[2019-09-11 06:19] LABS: ALT (SGPT) Less than 7 U/L (8-55); AST (SGOT) 15 U/L (5-34); Albumin 3.2 g/dL (3.4-4.8); Alkaline Phosphatase 82 U/L (40-110); Anion Gap 11 mmol/L (10-20); BUN (Urea Nitrogen) 20 mg/dL (9.8-20.1); Bilirubin, Total 0.6 mg/dL (0.2-1.2); Calc. Creatinine Clearance 82 mL/min (70-130); Calcium 8.8 mg/dL (7.8-10.44); Carbon Dioxide 22 mmol/L (23-31); Chloride 110 mmol/L (98-107); Estimated GFR-MDRD 59; Globulin 2.5 g/dL (2.4-3.5); Glucose 76 mg/dL (80-115); Magnesium 1.3 mg/dL (1.6-2.6); Potassium 3.6 mmol/L (3.5-5.1); Protein, Total 5.7 g/dL (6.0-8.3); Sodium 139 mmol/L (136-145)
[2019-09-11 06:21] LABS: Band 10 % (5-11); Eosinophils 6 % (0-10); Hemoglobin 9.8 g/dL (12.0-16.0); Lymphocytes 6 % (21-51); MDiff Complete? YES; Mean Corpuscular HGB CONC 33.4 g/dL (32.0-36.0); Mean Corpuscular Hemoglobin 31.3 pg (27.0-31.0); Mean Corpuscular Volume 93.7 fL (78.0-98.0); Mean Platelet Volume 8.5 fL (7.4-10.4); Monocytes 5 % (0-10); Neutrophil 73 % (42-75); Platelet Count 234 thou/uL (130-400); Red Blood Cell (RBC) Count 3.13 mill/uL (4.20-5.40); White Blood Cell (WBC) Count 7.7 thou/uL (4.8-10.8)
[2019-09-11] MEDS: metroNIDAZOLE 500 MG in Premix Bag 1 BAG IVPB SCH (06:29)
[2019-09-11] MEDS ORDERED: Cyanocobalamin (Vitamin B-12) 1,000 MCG TAB PO SCH (09:00)
[2019-09-11] MEDS ORDERED: Folic Acid 1 MG TAB PO SCH (09:00)
[2019-09-11] MEDS: Famotidine 20 MG TAB PO SCH (09:08)
[2019-09-11] MEDS: Enoxaparin Sodium 30 MG/0.3 ML SYRINGE SC SCH (09:08)
[2019-09-11] MEDS: 1/2 NS w/KCL 20 mEq 1,000 ML IV SCH (09:09)
--- NOTE | 2019-09-11 10:36 | PDOC.HOSPP ---
- Subjective Encounter Date: 09/11/19 Encounter Time: 10:36 - Objective Vital Signs & Weight: Vital Signs (12 hours) Temp Pulse Resp BP Pulse Ox 09/11/19 08:20 66 95 09/11/19 07:25 98 F 41 L 16 128/56 L 95 09/11/19 02:59 99.0 F 76 16 109/53 L 99 09/10/19 23:09 98.9 F 75 16 114/54 L 95 Weight Weight 234 lb 14.088 oz I&O: 09/10/19 09/11/19 09/12/19 06:59 06:59 06:59 Intake Total 4055 Balance 4055 Result Diagrams: 09/11/19 05:20 09/11/19 05:20 Hospitalist ROS - Medication Medications: Active Medications Generic Name Dose Route Start Last Admin Trade Name Freq PRN Reason Stop Dose Admin Cyanocobalamin 1,000 mcg 09/11/19 09:00 09/11/19 09:08 Vitamin B-12 PO 1,000 mcg DAILY GLORIA Administration Folic Acid 1 mg 09/11/19 09:00 09/11/19 09:08 Folvite PO 1 mg DAILY GLORIA Administration Potassium Chloride/Sodium Chloride 1,000 mls @ 125 mls/hr 09/10/19 07:45 09:09 1/2 Ns W/Kcl 20 Meq IV 1,000 mls .Q8H GLORIA Administration Metronidazole 500 mg/ Device 100 mls @ 100 mls/hr 09/10/19 14:00 09/11/19 06: 29 IVPB 100 mls Q8HR GLORIA Administration
[2019-09-11 11:19] VITALS: BP 144/63; TEMP 98.2
--- NOTE | 2019-09-11 11:35 | DIS ---
DATE OF ADMISSION: 09/10/2019 DATE OF DISCHARGE: 09/11/2019 ADMISSION DIAGNOSES: 1. Nausea, vomiting, diarrhea, and gastroenteritis. 2. Syncope due to volume depletion. 3. Acute kidney injury. 4. Hyponatremia, hypokalemia. 5. History of hypertension. 6. Psoriasis. 7. Anemia. 8. Obesity. 9. Gastroesophageal reflux disease. DISCHARGE DIAGNOSES: 1. Gastroenteritis - resolved. 2. Acute kidney injury - resolved. 3. Syncope due to volume depletion - resolved. 4. Hyponatremia and hypokalemia - resolved. 5. Hypomagnesemia - the patient being discharged on p.o. magnesium oxide supplementation. 6. Essential hypertension. 7. Psoriasis. 8. Anemia. 9. Obesity. 10. Gastroesophageal reflux disease. PERTINENT IMAGING: The patient underwent CT scan of the abdomen/pelvis on 09/10/2019. This revealed multiple hypodensities in the liver compatible with cysts. No other acute abnormality was demonstrated. CONSULTATIONS: None. BRIEF HOSPITAL COURSE: The patient is a 69-year-old female with a history of psoriasis, on cyclosporine, essential hypertension, who presented to the emergency department due to nausea, vomiting, diarrhea, and experiencing a syncopal episode when she was in the toilet for diarrhea. The patient was found to have bandemia and acute kidney injury. The patient was admitted to the hospital and placed on intravenous metronidazole. Her acute kidney injury resolved with intravenous fluid resuscitation. Her bandemia is significantly improved. The patient's diarrhea resolved and the patient no longer has nausea or vomiting. She is able to tolerate diet. Hence, the patient has been deemed stable to be discharged home today. Her chlorthalidone has been discontinued and the patient has been instructed to follow up with her primary care physician regarding possible resumption. On the day of discharge, the patient is sitting in the bed and appears to be in no acute distress. Auscultation of the lungs revealed clear breath sounds bilaterally. First and second heart sounds were auscultated on examination of the cardiovascular system. DISCHARGE INSTRUCTIONS: 1. Discharge disposition - home. 2. Discharge medications - reconciled. New medications include magnesium oxide and metronidazole. 3. Discharge followup per Dr. Yocasta Ng, primary care provider in 1 to 2 weeks. 4. Things for the primary care physician followup - CT scan of the abdomen/pelvis revealed multiple cysts in the liver. This needs to be further evaluated as an outpatient. 5. Discharge activity - as tolerated. 6. Discharge diet - low-sodium heart healthy diet. Job ID: [id number]
[2019-09-11] MEDS ORDERED: Magnesium Oxide 400 MG TAB PO SCH (21:00)
== END 2019-09-11 12:20 | disposition home or self-care (01) | DRG 683 ==
LOC: ERS 01:19 → SJJU 06:25
PROVIDERS: ADMIT Internal Medicine; ATTEND Internal Medicine
DX: N17.9 Acute kidney failure, unspecified (principal); E87.1 Hypo-osmolality and hyponatremia; E87.2 Acidosis; E87.6 Hypokalemia; K52.9 Noninfective gastroenteritis and colitis, unspecified; I10 Essential (primary) hypertension; L40.9 Psoriasis, unspecified; E66.9 Obesity, unspecified; K21.9 Gastro-esophageal reflux disease without esophagitis; E83.42 Hypomagnesemia; E86.9 Volume depletion, unspecified; H10.9 Unspecified conjunctivitis; D72.825 Bandemia; L30.9 Dermatitis, unspecified; D63.8 Anemia in other chronic diseases classified elsewhere; E78.00 Pure hypercholesterolemia, unspecified; Z96.651 Presence of right artificial knee joint; M17.12 Unilateral primary osteoarthritis, left knee; Z90.710 Acquired absence of both cervix and uterus; Z68.37 Body mass index [BMI] 37.0-37.9, adult; Z79.52 Long term (current) use of systemic steroids; Z79.899 Other long term (current) drug therapy; Z88.2 Allergy status to sulfonamides; Z88.1 Allergy status to other antibiotic agents
CPT/HCPCS: 36415; 71045; 74176; 80053; 82533; 83605; 83735; 84100; 85025; 93005; 96361; 96374; 96375; J1650; J2270; J2405; J3480

== ENCOUNTER 2020-07-20 12:28 | Outpatient (CLI) | payer MEDICARE ==
--- NOTE | 2020-07-20 13:16 | RAD ---
Exam: Lumbar spine 2 views HISTORY: Lumbar stenosis without neurogenic claudication COMPARISON: 05/15/2019 FINDINGS: Stable laminectomy defect at L5 5 lumbar type vertebra. Stable loss of disc space height and osteophyte formation at the thoracolumba r junction, L1-L2, L2-L3, L3-L4 and L5-S1. Bilateral transpedicular screws at L4 and L5 without perihardware lucency. 1.1 cm of anterolisthesis of L4 for upon L5 of the lateral weightbearing view. Previously, there was 1 cm of anterolisthesis of L4 upon L5 IMPRESSION: Stable lumbar fusion and stable degenerative changes.
== END 2020-07-20 12:29 | disposition home or self-care (01) ==
LOC: BICRAD 12:28
PROVIDERS: ATTEND Neurological Surgery
DX: M54.5 Low back pain (principal); M47.816 Spondylosis without myelopathy or radiculopathy, lumbar region; Z98.1 Arthrodesis status
CPT/HCPCS: 72100

== ENCOUNTER 2020-08-04 07:06 | Day surgery (SDC) | payer MEDICARE ==
[2020-08-03 14:20] VITALS: BMI 35.7
[2020-08-04 08:28] VITALS: BP 145/63; TEMP 96
--- NOTE | 2020-08-04 08:58 | RAD ---
XR Myelogram Lumbar Spine History: Lumbar spondylolisthesis Comparison: Radiograph July 20, 2020 Findings: Patient was brought to the fluoroscopy suite. Questions were answered. Informed consent obtained. Timeout performed. The patient's back was prepped and draped in normal sterile fashion. After adequate local anesthesia with lidocaine, the L3/L4 interspace was accessed. Clear CSF was visualized. 10 mL of contrast was instilled into the thecal sac. Needle was removed. Patient tolerated the procedure well without compl ication. Impression: Technically successful fluoroscopic guided lumbar myelogram. Fluoroscopy time: 0.6 minutes
--- NOTE | 2020-08-04 10:58 | CT ---
CT Lumbar Spine W Con History: Spondylolisthesis. Myelogram. Comparison: Myelogram same day. Radiograph May 20, 2020 Findings: No hydronephrosis. The lung bases are clear. Aortic contour is nonaneurysmal. Mild diverticular disease sigmoid colon. Motion artifact throughout the examination. No SI joint widening. Levels are as follows: T12/L1: Advanced degenerative disc space height loss. Small circumferential disc osteophyte complex. Mild ventral CSF space effacement with near anterior cord abutment. Spinal canal measures 9 mm. Moderate bilateral neural foraminal narrowing. L1/L2: Advanced degenerative disc space height loss. Large circumferential disc bulge greatest with s uperimposed disc protrusion in the left paracentral zone. Spinal canal is narrowed to 6 mm. There is abutment of the bilateral L2 and left L3 nerve roots. Moderate bilateral neural foraminal narrowin g. L2/L3: Advanced degenerative disc space height loss. 3 mm retrolisthesis. Large disc osteophyte compl ex. Ventral CSF space narrowing with prior laminectomy change decompressing the thecal sac which measures 11 mm. The large disc osteophyte complex does abut the traversing L3 nerve roots. L3/L4: Advanced degenerative disc space height loss. 2 mm retrolisthesis. Large disc osteophyte compl ex. Prior laminectomy change with posterior subluxation of the thecal sac through the laminectomy defect. There is narrowed transverse dimension the spinal canal to approximately 6 mm. The AP dimensi on is normal. Disc osteophyte complex causes moderate bilateral neural foraminal narrowing. L4/L5: Transfixed with posterior transpedicular screws and interconnecting rods. No hardware fracture or perihardware lucency. Anterolisthesis of 9 mm. No significant neural foraminal or spinal canal narrowing due to laminectomy change. L5/S1: Advanced degenerative disc space height loss. 3 mm retrolisthesis. Large posterior disc osteop hyte complex causes moderate bilateral neural foraminal narrowing. Decreased transverse dimension of the spinal canal to 5 mm. Impression: Multilevel spondylosis as described with neural foraminal and spinal canal narrowing.
[2020-08-04] MEDS ORDERED: Iopamidol-M 200 41% 20 ML VIAL ONE (13:17)
== END 2020-08-04 10:00 | disposition home or self-care (01) ==
LOC: RAD 07:06
PROVIDERS: ATTEND Neurological Surgery
PROC: B02B1ZZ Computerized Tomography (CT Scan) of Spinal Cord using Low Osmolar Contrast (ICD-10-PCS; principal; 2020-08-04)
DX: M43.16 Spondylolisthesis, lumbar region (principal); M51.36 Other intervertebral disc degeneration, lumbar region; I10 Essential (primary) hypertension; M19.90 Unspecified osteoarthritis, unspecified site; L40.9 Psoriasis, unspecified; Z79.899 Other long term (current) drug therapy; Z88.1 Allergy status to other antibiotic agents; Z88.2 Allergy status to sulfonamides; Z88.8 Allergy status to other drugs, medicaments and biological substances
CPT/HCPCS: 62304; 72132; Q9966

== ENCOUNTER 2020-11-11 11:52 | Outpatient (CLI) | payer MEDICARE ==
--- NOTE | 2020-11-11 12:37 | RAD ---
EXAM: Chest 2 views: HISTORY: Chronic cough COMPARISON: 01/17/18 FINDINGS: There is a normal-sized cardiomediastinal silhouette. Atherosclerotic calcifications are seen in the aorta. There is no evidence of consolidation, mass, or pleural effusion. Degenerative changes are seen in the spine. IMPRESSION: No evidence of acute cardiopulmonary disease
== END 2020-11-11 11:53 | disposition home or self-care (01) ==
LOC: BICRAD 11:52
PROVIDERS: ATTEND Family Medicine
DX: R05 Cough (principal)
CPT/HCPCS: 71046

== ENCOUNTER 2020-11-11 12:11 | Outpatient (CLI) | payer MEDICARE ==
--- NOTE | 2020-11-11 13:59 | MMO ---
Bilateral MAMMO Bilat Screen [facility]. CLINICAL HISTORY: Patient is 70 years old and is seen for screening. The patient has no family history of breast cancer. The patient has no personal history of cancer. VIEWS: The views performed were: bilateral craniocaudal with tomosynthesis and bilateral mediolateral oblique with tomosynthesis. FILMS COMPARED: The present examination has been compared to prior imaging studies performed at [facility] on 06/17/2013, 06/23/2015, 06/24/2016 and 07/27/2017. This study has been interpreted with the assistance of computer-aided detection. MAMMOGRAM FINDINGS: The breasts are almost entirely fat. There are no suspicious masses, suspicious calcifications, or new areas of architectural distortion. IMPRESSION: THERE IS NO MAMMOGRAPHIC EVIDENCE OF MALIGNANCY. A ROUTINE FOLLOW-UP MAMMOGRAM IN 1 YEAR IS RECOMMENDED. THE RESULTS OF THIS EXAM WERE SENT TO THE PATIENT. ACR BI-RADS Category 1 - Negative MAMMOGRAPHY NOTE: 1. A negative mammogram report should not delay a biopsy if a dominant of clinically suspicious mass is present. 2. Approximately 10% to 15% of breast cancers are not detected by mammography. 3. Adenosis and dense breasts may obscure an underlying neoplasm. Reported by: DELIA ELMORE MD Electonically Signed: [id number]
== END 2020-11-11 12:12 | disposition home or self-care (01) ==
LOC: BICMAMMO 12:11
PROVIDERS: ATTEND Family Medicine
DX: Z12.31 Encounter for screening mammogram for malignant neoplasm of breast (principal)
CPT/HCPCS: 77063; 77067

== ENCOUNTER 2021-08-26 15:23 | Outpatient (CLI) | payer MEDICARE ==
[2021-08-26 18:21] LABS: Bilirubin Neg (Negative); Blood, Urine 10 (Negative); Clarity Slightly Cloudy (Clear); Glucose, Urine (Dipstick) Normal (Negative); Ketone, Urine Negative (Negative); Leukocyte 500 (Negative); Nitrite Positive (Negative); Protein, Urine (Dipstick) 30 mg/dl (Neg-Trace); Urobilinogen Normal mg/dL (Less than 2)
[2021-08-26 18:30] LABS: #Eosinphils 0.3 10x3/uL (0.0-0.5); #Monocytes 0.9 10x3/uL (0.0-1.1); #Neutrophils 3.9 10x3/uL (1.5-8.4); %Basophils 0.6 % (0.0-2.0); %Eosinophils 4.4 % (0.0-6.0); %Lymphocytes 19.2 % (18.0-47.0); %Monocytes 14.4 % (0.0-10.0); %Neutrophils 60.9 % (40.0-75.0); Hemoglobin 11.7 g/dL (12.0-15.5); Mean Corpuscular HGB CONC 32.1 g/dL (32.0-36.0); Mean Corpuscular Hemoglobin 30.9 pg (27.0-33.0); Mean Platelet Volume 11.6 fl (7.4-10.4); Platelet Count 258 10x3/uL (150-450); RBC Distribution Width 13.2 % (11.5-14.5); Red Blood Cell (RBC) Count 3.79 10x6/uL (3.90-5.03); White Blood Cell (WBC) Count 6.3 10x3/uL (3.5-10.5)
[2021-08-26 18:57] LABS: Anion Gap 12 mmol/L (10-20); BUN (Urea Nitrogen) 18 mg/dL (9.8-20.1); Calc. Creatinine Clearance 0 mL/min (70-130); Calcium 9.5 mg/dL (7.8-10.44); Carbon Dioxide 27 mmol/L (23-31); Chloride 108 mmol/L (98-107); Glucose 76 mg/dL (80-115); Potassium 3.9 mmol/L (3.5-5.1); Sodium 143 mmol/L (136-145)
[2021-08-26 19:08] LABS: INR-International Normal Ratio 0.9; Prothrombin Time 10.5 sec (9.5-12.1)
[2021-08-26 19:20] LABS: Bacteria/HPF 1+ HPF (None Seen); Squamous Epithelial 0-3 HPF (0-3)
[2021-08-27 07:59] LABS: SARS-CoV-2 PCR by NAA Not Detected (NotDetected)
== END 2021-08-26 15:24 | disposition home or self-care (01) ==
LOC: LABBT 15:23
PROVIDERS: ATTEND Orthopaedic Surgery
DX: Z01.818 Encounter for other preprocedural examination (principal); Z20.822 Contact with and (suspected) exposure to COVID-19
CPT/HCPCS: 80048; 85025; 85610; 87081; U0003; U0005; 81003; 81015; 93005; 93010

== ENCOUNTER 2021-08-31 06:02 | Inpatient (IN) | payer MEDICARE ==
[2021-08-31] MEDS ORDERED: Vancomycin 1.5 GRAM/300 ML BAG 1.5 GM in Premix Bag 1 BAG IVPB SCH (07:45)
[2021-08-31] MEDS ORDERED: Tranexamic Acid 1,000 MG/10 ML VIAL ONE (08:03)
[2021-08-31] MEDS ORDERED: ceFAZolin 2 GM/DEX 5% 100 ML BAG ONE (08:03)
[2021-08-31] MEDS ORDERED: Sodium Chloride 0.9% 100 ML ONE (08:03)
[2021-08-31] MEDS ORDERED: Midazolam HCl 2 mg/2 ml Vial ONE (08:29)
[2021-08-31] MEDS ORDERED: Fentanyl 100 MCG/2 ML VIAL ONE ×5 (08:29→12:19)
[2021-08-31] MEDS ORDERED: Bupivacaine PF 0.5% 30 ML VIAL ONE (09:08)
[2021-08-31] MEDS ORDERED: Dexamethasone 20 MG/5 ML VIAL ONE (09:30)
[2021-08-31] MEDS ORDERED: Rocuronium Bromide 10 MG/ML (10ML VIAL) ONE (09:30)
[2021-08-31] MEDS ORDERED: Labetalol HCl 100 MG/20 ML VIAL ONE (09:30)
[2021-08-31] MEDS ORDERED: Ondansetron PF 4 MG/2 ML Vial ONE (09:30)
[2021-08-31] MEDS ORDERED: Metoprolol Tartrate 5 MG/5 ML VIAL ONE (09:30)
[2021-08-31] MEDS ORDERED: Ketorolac Tromethamine 30 MG/ML VIAL ONE (09:30)
[2021-08-31] MEDS ORDERED: PROPOFOL 200 MG/20 ML VIAL ONE (09:30)
[2021-08-31] MEDS ORDERED: Glycopyrrolate 0.2 MG/ML 5 ML SYRINGE ONE (09:30)
[2021-08-31] MEDS ORDERED: Bupivacaine HCl 0.5%/Epinephrine 1:200,000/PF 30 ml Vial ONE (09:30)
[2021-08-31] MEDS ORDERED: PROPOFOL 20 ML ONE (09:41)
[2021-08-31] MEDS ORDERED: Fentanyl 100 MCG/2 ML VIAL IV PRN (10:06)
[2021-08-31] MEDS ORDERED: Ropivacaine 0.2% 550 ML 550 ML NERVE BLCK SCH (10:15)
[2021-08-31] MEDS ORDERED: Promethazine HCl 25 MG/ML VIAL IM PRN ×2 (10:15→11:49)
[2021-08-31] MEDS ORDERED: Ondansetron PF 4 MG/2 ML Vial IVP PRN ×2 (10:15→11:49)
[2021-08-31] MEDS ORDERED: traMADol HCl 50 MG TAB PO PRN ×2 (10:15)
[2021-08-31] MEDS ORDERED: HYDROcodone/Acetaminophen 10/325 mg Tablet PO PRN (10:15)
[2021-08-31] MEDS ORDERED: Zolpidem Tartrate 5 MG TAB PO PRN ×2 (10:15→11:49)
[2021-08-31] MEDS ORDERED: Acetaminophen 325 MG TAB PO PRN (11:49)
[2021-08-31] MEDS ORDERED: diphenhydrAMINE 25 MG CAP PO PRN (11:49)
[2021-08-31] MEDS ORDERED: DUPILUMAB FS SCH (12:00)
[2021-08-31 13:52] VITALS: BMI 38.7
[2021-08-31] MEDS: Sodium Chloride 0.9% 1,000 ML IV SCH ×2 (14:14→22:27)
[2021-08-31] MEDS: Ketorolac Tromethamine 30 MG/ML VIAL IVP SCH ×3 (14:14→23:30)
[2021-08-31] MEDS: ceFAZolin Sodium/D5W 2 GM in Premix Bag 1 BAG IVPB SCH ×2 (14:27→21:42)
[2021-08-31] MEDS: Carvedilol 6.25 MG TAB PO SCH (17:32)
[2021-08-31] MEDS ORDERED: CYCLOSPORINE 100 MG PO SCH (21:00)
[2021-08-31] MEDS: HYDROcodone/Acetaminophen 10/325 mg Tablet PO PRN (21:39)
[2021-08-31] MEDS: diphenhydrAMINE 25 MG CAP PO PRN (21:40)
[2021-08-31] MEDS: Ferrous Gluconate 324 MG TAB PO SCH (21:41)
[2021-08-31] MEDS: Senokot S 8.6-50 MG TAB PO SCH (21:41)
[2021-08-31] MEDS: Aspirin 81 mg Enteric Coated Tablet PO SCH (21:42)
[2021-08-31] MEDS: Atorvastatin Calcium 10 MG TAB PO SCH (21:42)
[2021-09-01] MEDS: Ketorolac Tromethamine 30 MG/ML VIAL IVP SCH ×4 (06:45→23:04)
[2021-09-01 06:47] LABS: Hemoglobin 11.3 g/dL (12.0-16.0); Mean Corpuscular HGB CONC 34.6 g/dL (32.0-36.0); Mean Corpuscular Hemoglobin 33.3 pg (27.0-31.0); Mean Corpuscular Volume 96.3 fL (78.0-98.0); Mean Platelet Volume 7.6 fL (7.4-10.4); Platelet Count 203 thou/uL (130-400); RBC Distribution Width 11.8 % (11.5-14.5); White Blood Cell (WBC) Count 11.1 thou/uL (4.8-10.8)
[2021-09-01] MEDS: Sodium Chloride 0.9% 1,000 ML IV SCH ×2 (08:00→17:40)
[2021-09-01] MEDS: Aspirin 81 mg Enteric Coated Tablet PO SCH ×2 (08:06→21:28)
[2021-09-01] MEDS: HYDROcodone/Acetaminophen 10/325 mg Tablet PO PRN (08:06)
[2021-09-01] MEDS: Multivitamin W/ Minerals 1 TAB PO SCH (08:06)
[2021-09-01] MEDS: Cholecalciferol 1,000 UNITS (25 MCG) TAB PO SCH (08:06)
[2021-09-01] MEDS: Doxazosin Mesylate 1 MG TAB PO SCH (08:07)
[2021-09-01] MEDS: Senokot S 8.6-50 MG TAB PO SCH ×2 (08:08→21:28)
[2021-09-01] MEDS: Carvedilol 6.25 MG TAB PO SCH ×2 (08:17→17:32)
[2021-09-01] MEDS: Cyanocobalamin (Vitamin B-12) 1,000 MCG TAB PO SCH (08:17)
[2021-09-01] MEDS: Amlodipine 10 MG TAB PO SCH (08:17)
[2021-09-01] MEDS: methylPREDNISolone 4 mg Tablet PO SCH (08:17)
[2021-09-01] MEDS: Ferrous Gluconate 324 MG TAB PO SCH ×2 (08:17→21:27)
[2021-09-01] MEDS: Folic Acid 1 MG TAB PO SCH (08:25)
[2021-09-01] MEDS ORDERED: Folic Acid 1 MG TAB PO SCH (09:00)
[2021-09-01] MEDS: Atorvastatin Calcium 10 MG TAB PO SCH (21:28)
[2021-09-01] MEDS: diphenhydrAMINE 25 MG CAP PO PRN (23:04)
[2021-09-02] MEDS: Sodium Chloride 0.9% 1,000 ML IV SCH ×2 (03:51→13:08)
[2021-09-02] MEDS: Ketorolac Tromethamine 30 MG/ML VIAL IVP SCH (05:43)
[2021-09-02] MEDS: Cyanocobalamin (Vitamin B-12) 1,000 MCG TAB PO SCH (08:46)
[2021-09-02] MEDS: Cholecalciferol 1,000 UNITS (25 MCG) TAB PO SCH (08:46)
[2021-09-02] MEDS: Senokot S 8.6-50 MG TAB PO SCH (08:46)
[2021-09-02] MEDS: Multivitamin W/ Minerals 1 TAB PO SCH (08:46)
[2021-09-02] MEDS: Ferrous Gluconate 324 MG TAB PO SCH (08:47)
[2021-09-02] MEDS: Carvedilol 6.25 MG TAB PO SCH (08:47)
[2021-09-02] MEDS: Folic Acid 1 MG TAB PO SCH (08:47)
[2021-09-02] MEDS: Aspirin 81 mg Enteric Coated Tablet PO SCH (08:47)
[2021-09-02] MEDS: Amlodipine 10 MG TAB PO SCH (08:47)
[2021-09-02] MEDS: methylPREDNISolone 4 mg Tablet PO SCH (08:48)
[2021-09-02] MEDS: Doxazosin Mesylate 1 MG TAB PO SCH (08:48)
[2021-09-02 13:02] VITALS: BP 151/65; TEMP 98.2
== END 2021-09-02 14:55 | disposition home or self-care (01) | DRG 470 ==
LOC: SDC 06:02 → SURG A 11:50
PROVIDERS: ADMIT Orthopaedic Surgery; ATTEND Orthopaedic Surgery
PROC: 0SRD0J9 Replacement of Left Knee Joint with Synthetic Substitute, Cemented, Open Approach (ICD-10-PCS; principal; 2021-08-31)
DX: M17.12 Unilateral primary osteoarthritis, left knee (principal); Z88.1 Allergy status to other antibiotic agents; Z88.2 Allergy status to sulfonamides; Z90.710 Acquired absence of both cervix and uterus; Z98.42 Cataract extraction status, left eye; Z98.41 Cataract extraction status, right eye
CPT/HCPCS: 36415; 85027; A4306; C1713; C1776; J1100; J1885; J2250; J2405; J2704; J2795; J3010; J3370; J3490; J7509; S0020

== ENCOUNTER 2024-07-29 10:24 | Outpatient (CLI) | payer MEDICARE | END 2024-07-29 10:25 | disposition home or self-care (01) | LOC: BICMAMMO 10:24 | PROVIDERS: ATTEND Family Medicine | DX: Z12.31 Encounter for screening mammogram for malignant neoplasm of breast (principal) | CPT/HCPCS: 77063; 77067 ==